=== PATIENT | male | born 1960 | race Caucasian/White ===

== ENCOUNTER 2023-05-06 12:02 | Emergency (ER) | payer OTHER, SELFPAY ==
--- NOTE | ~2023-05-06 | XR_ITS ---
EXAMINATION:XR_[id number]_CR DATE: 05/06/2023 12:31 INDICATION: Left-sided neck and shoulder pain TECHNIQUE: AP, lateral, lateral swimmers and odontoid views of the cervical spine are provided. COMPARISON: None FINDINGS: Alignment is normal. Odontoid is intact. Mild to moderate osteoarthritis at the atlantoaxial articula tion. Vertebral body heights are normal. Moderate disc height loss with severe bilateral uncovertebra l osteoarthritis at C6-C7. Mild disc height loss with mild bilateral uncovertebral osteoarthritis at C2-C3, C4-C5 and with moderate uncovertebral osteoarthritis at C5-C6. Moderate facet osteoarthritis a t C7-T1 and mild facet osteoarthritis throughout the more cephalad cervical spine. Prevertebral soft tissues are normal. IMPRESSION: 1. Moderate lower cervical predominant spondylosis. Reviewed, dictated and finalized at location A.
[2023-05-06 12:07] VITALS: BP 150/86; PULSE 83; RESP 16; TEMP 36.8; O2SAT 99
[2023-05-06] MEDS: CYCLOBENZAPRINE HCL 5 MG TABLET PO (12:29)
[2023-05-06] MEDS: KETOROLAC 30 MG/ML VIAL (*BKC) IM (12:29)
--- NOTE | 2023-05-06 12:34 | ED.NECK ---
HPI - Neck Pain/Injury General Chief Complaint: Neck Pain/Injury Stated Complaint: Neck Pain Time Seen by Provider: 05/06/23 12:03 History of Present Illness HPI Narrative: This is a 62-year-old male, with no significant past medical history, who presents to the emergency department complaining of left shoulder pain. The patient states he has had left shoulder pain for the past 2 years often on, though it is worse in the past day. 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 Yesterday he was at an outside hospital supporting family after a in the family. He states he fell asleep in a chair and on waking felt 5/10 sore and achy left shoulder pain. He states he took ibuprofen overnight and felt some improvement this morning. He denies trauma, fall, weakness/ numbness and has no other complaints at this time. Related Data Allergies Allergy/AdvReac Type Severity Reaction Status Date / Time No Known Allergies Allergy Verified 05/06/23 12:05 Review of Systems Review of Systems: CONSTITUTIONAL: Denies fever, chills, or sweats. CARDIOVASCULAR: Denies chest pain, palpitations, or edema. RESPIRATORY: Denies cough or dyspnea. GASTROINTESTINAL: Denies abdominal pain, nausea, vomiting, or diarrhea. GENITOURINARY: Denies dysuria or hematuria. SKIN: Denies rash or itching. MUSCULOSKELETAL: Left-sided neck and shoulder pain Denies back pain, or myalgia. NEUROLOGIC: Denies headache, numbness, dizziness, or weakness. PSYCHIATRIC: Denies anxiety or depression. [facility] Past Medical History Medical History Fracture dislocation of right ankle Surgical History Surgical History History of repair of right rotator cuff Family History Family History Father Diabetes mellitus Mother Diabetes mellitus Social History Social History Years smoked: 15 Smoking status: Never smoker Tobacco type: cigarettes Second hand tobacco smoke exposure: Yes Alcohol intake: current Substance use: former Substance use type: marijuana Lack of Transportation: No Lack of Food: Never True Current Housing: I Have Housing Concerned About Future Housing: No Difficulty Paying Gas/Electric Bills: No Difficulty Paying for Meds: No Currently Unemployed: YES Education: Trade/Vocational Certificate Difficulty w/ Childcare or Family Care: No Living arrangements: with family Occupation/Education: occupation Gender identity (if verbalized by the patient): Male Sexual Orientation (if Verbalized by the Patient): Straight or Heterosexual Spiritual care concerns: Yes Agree to blood products: Yes Exam Narrative: GENERAL: Well-developed, well-nourished, and in no acute distress. HEAD: Normocephalic, atraumatic. EYES: PERRLA and EOMI. NECK: Supple. No midline spine tenderness to palpation, no step-off or crepitus. Left paraspinal muscle spasm, left trapezius muscle spasm CHEST: Clear to auscultation. No respiratory distress. No wheezes rales or rhonchi HEART: Regular rate and rhythm. No murmur heard. Normal peripheral pulses. ABDOMEN: Soft, nontender, nondistended, normal active bowel sounds. EXTREMITIES: Normal range of motion. No edema. SKIN: Warm, dry, no rash. NEURO: Alert and oriented x3. No focal deficit. Moving all 4 limbs spontaneously PSYCH: Normal mood and affect. Course Course Emergency Course: 13:34 - X-ray of the cervical spine demonstrates arthritic changes, with disc height loss noted at C6-7. I suspect the patient's pain is related to cervical radiculopathy and muscle spasm. Will discharge with muscle relaxers, lidocaine patches and recommendation for primary care follow-up. I discussed the findings and recommendations with the patient. Discussed return and minerva
[2023-05-06 13:40] VITALS: PULSE 65; RESP 16; O2SAT 97
== END 2023-05-06 13:47 | disposition home or self-care (01) ==
PROVIDERS: Emergency Provider Preventive Medicine Aerospace Medicine; PCP Family Medicine
DX: M62.838 Other muscle spasm (principal); M54.12 Radiculopathy, cervical region
CPT/HCPCS: 72040; 96372; 99283; A9270; J1885

== ENCOUNTER 2023-06-19 15:56 | Outpatient (CLI) | payer OTHER, SELFPAY ==
[2023-06-19 17:13] LABS: Cholesterol 278 mg/dL (0-200); HDL Direct 54 mg/dL (40-60); LDL Cholesterol Calculated 153 mg/dL (<130); Prostate Specific Antigen 1.7 ng/mL (< OR = 4.0); Triglycerides 353 mg/dL (0-150)
== END 2023-06-19 15:57 | disposition home or self-care (01) ==
PROVIDERS: PCP Family Medicine; Visit Provider Nurse Practitioner Family
DX: Z12.5 Encounter for screening for malignant neoplasm of prostate (principal); R73.09 Other abnormal glucose; E78.00 Pure hypercholesterolemia, unspecified
CPT/HCPCS: 36415; 80061; 84153

== ENCOUNTER 2023-11-18 16:06 | Outpatient (CLI) | payer MEDICAID, SELFPAY ==
--- NOTE | ~2023-11-18 | XR_ITS ---
EXAMINATION: XR ankle RT min 3V DATE: 11/18/2023 16:31 INDICATION: Right ankle pain TECHNIQUE: Anteroposterior, oblique, mortise, and lateral views of the right ankle were obtained. COMPARISON: None. FINDINGS: Alignment is normal. No fracture. Moderate-sized Achilles and plantar calcaneal spurs. Joint spaces a re relatively preserved. No cortical erosions or periosteal reaction. There is mild soft tissue swell ing about the medial malleolus. IMPRESSION: 1. Mild soft tissue swelling about the medial malleolus. No acute osseous abnormality. 2. Moderate-sized Achilles and plantar calcaneal spurs. Reviewed, dictated and finalized at location A. IMPRESSION: 1. Mild soft tissue swelling about the medial malleolus. No acute osseous abnor mality. 2. Moderate-sized Achilles and plantar calcaneal spurs.
== END 2023-11-18 16:07 | disposition home or self-care (01) ==
LOC: CHSIMG 16:12
PROVIDERS: PCP Family Medicine
DX: M25.571 Pain in right ankle and joints of right foot (principal); M79.89 Other specified soft tissue disorders; M77.31 Calcaneal spur, right foot
CPT/HCPCS: 73610

== ENCOUNTER 2024-02-14 13:54 | Outpatient (CLI) | payer MEDICAID, SELFPAY ==
--- NOTE | ~2024-02-14 | XR_ITS ---
XR chest 2V Ordering provider: MAGEN Morales History: 63 years Male with . Rt. side chest pain x1 month, NKI . Comparison: None. FINDINGS: MEDIASTINUM: The cardiac silhouette is not enlarged. LUNGS: No infiltrates, effusions or pneumothorax. OTHER: No free air under the diaphragm. Degenerative changes of the spine. IMPRESSION: No acute cardiopulmonary pathology. Reviewed, dictated and finalized at location A. FILTER OPERATOR HELPER
[2024-02-14 14:58] LABS: Cholesterol 275 mg/dL (0-200); HDL Direct 56 mg/dL (40-60); LDL Cholesterol Calculated 163 mg/dL (<130); Triglycerides 278 mg/dL (0-150)
[2024-02-14 15:00] LABS: CRP < 0.5 mg/dL (0.0-0.9)
[2024-02-14 15:01] LABS: Erythrocyte Sedimentation Rate 10 mm/hr (0-20)
[2024-02-16 10:08] LABS: HLA B27 POSITIVE (NEGATIVE)
== END 2024-02-14 13:55 | disposition home or self-care (01) ==
LOC: CHSLAB 13:57
PROVIDERS: PCP Nurse Practitioner Family; Visit Provider Nurse Practitioner Family
DX: E78.5 Hyperlipidemia, unspecified (principal); M54.9 Dorsalgia, unspecified
CPT/HCPCS: 36415; 71046; 80061; 85652; 86140; 86812

== ENCOUNTER 2024-03-31 10:15 | Outpatient (CLI) | payer OTHER, SELFPAY ==
--- NOTE | ~2024-03-31 | US_ITS ---
Abdominal Sonogram: Real-time sonographic imaging of the abdomen was performed. Clinical History: Abdominal pain Findings: The liver appears echogenic, with no evidence of mass lesion or bile duct dilatation. Main portal vein demonstrates normal direction of flow. The spleen is normal in size, with suspected subt le 3.1 cm nearly isoechoic round mass. The gallbladder is well distended, and appears normal with no evidence of gallstone or wall thickening. The common bile duct measures 3 mm. The visualized pancre as, aorta, and IVC are unremarkable. The right kidney measures 11.8 cm in length and the left kidney measures 12.6 cm. There is no hydronephrosis or renal calculus. Impression: Diffuse fatty infiltration of the liver. Suspected subtle 3.1 cm splenic mass. Consider MR to further evaluate. Reviewed, dictated and finalized at [facility]. ET CUTTER Impression: Diffuse fatty infiltration of the liver. Suspected subtle 3.1 cm splenic mass. Consider MR to further evaluate.
--- NOTE | ~2024-03-31 | XR_ITS ---
Clinical Indication: Chest pain PA and lateral views of the chest: Comparison: 02/14/2024 Findings: The lungs are clear, without evidence of focal consolidation or pleural effusion. Cardiome diastinal silhouette is within normal limits. Bones and soft tissues are unremarkable. Impression: Normal chest. Reviewed, dictated and finalized at location . OGRAPHIC ARTIST Impression: Normal chest.
[2024-03-31 10:53] LABS: Basophils Absolute Auto 0.13 K/mm3 (0.00-0.10); Basophils Percent Auto 1.4 % (0.0-1.0); Eosinophils Absolute Auto 0.43 K/mm3 (0.02-0.50); Eosinophils Percent Auto 4.5 % (1.0-6.0); Hematocrit 46.2 % (40.0-54.0); Hemoglobin 14.3 g/dL (14.0-18.0); Immature Granulocyte Absolute 0.06 K/mm3 (0.00-0.00); Immature Granulocyte Percent A 0.6 % (0.0-0.0); Lymphocytes Absolute Auto 3.21 K/mm3 (1.10-4.50); Lymphocytes Percent Auto 33.5 % (18.0-42.0); Mean Corpuscular Hemoglobin 27.3 pg (27.0-31.0); Mean Corpuscular Volume 88.3 fL (78.0-102.0); Mean Platelet Volume 10.1 fl (8.7-11.0); Monocytes Absolute Auto 0.91 K/mm3 (0.10-0.90); Monocytes Percent Auto 9.5 % (2.0-11.0); Neutrophils Absolute Auto 4.83 K/mm3 (1.70-7.20); Neutrophils Percent Auto 50.5 % (50.0-70.0); Platelet Count Result 313 K/mm3 (150-420); Red Blood Count 5.23 M/mm3 (4.70-6.10); Red Cell Distribution Width 13.4 % (11.6-14.4); White Blood Count 9.6 K/mm3 (4.8-10.8)
[2024-03-31 11:15] LABS: Alanine Aminotransferase 37 U/L (16-63); Albumin Level 4.2 g/dL (3.4-5.0); Alkaline Phosphatase 112 U/L (46-116); Amylase 52 U/L (25-115); Anion Gap 8 mmol/L (4-12); Aspartate Amino Transferase 18 U/L (15-37); Bilirubin,Total 0.5 mg/dL (0.00-1.00); Blood Urea Nitrogen 14 mg/dL (7-18); Calcium 9.5 mg/dL (8.5-10.1); Carbon Dioxide 30 mmol/L (21-32); Chloride 105 mmol/L (98-108); Creatine Kinase 157 U/L (39-308); Estimated Glomerular Filt Rate > 60; Glucose 119 mg/dL (70-99); Lipase 64 U/L (16-77); Osmolality Calculated 297 mOsm/kg (285-295); Potassium 5.1 mmol/L (3.5-5.1); Sodium 143 mmol/L (136-145); Total Protein 7.8 g/dL (6.4-8.2)
--- OUTSIDE RECORDS SUMMARY | 2024-03-31 11:20 | XMS_ITS | Encounter Summary ---
Author Organization [facility] Address [facility] [place] [address] Care Team Providers Care Seat Cover Cutter Name Role Phone Jonnathan Shine MD Primary Care Provider Encounter Details Date Type Department Care Team (Late st Contact Info) Description 01/04/2022 [employer] Message Enc [facility] [address], [facility] [address] [place] [address] Abhilash Charlton MD [address] [place] [address] Visit Follow Up Social History Tobacco Use Types Packs/Day Years Used Date Smoking Tobacco: Former Cigarettes 1990 Smokeless Tobacco: Never Alcohol Use Standard Drinks/Week Comments Yes 0 (1 standard drink = 0.6 oz pur e alcohol) DAILY AUDIT-C Answer Date Recorded Q1: How often do you have a drink containing alc ohol? Never 06/24/2020 Average Number of Drinks Not on file 021 Frequency of Binge Drinking Not on file 08/2020 Sex and Gender Information Value Date Recorded Sex Assigned at Male 08/10/2019 9:44 AM CDT Legal Sex Male 8:36 AM PRODUCT MERCHANDISER Gender Identity Male 08/10/2019 9:44 AM CDT Sexual Orientation Straight 03/16/2021 9: 15 AM PRODUCT MERCHANDISER COVID-19 Exposure Response Date Recorded In the last 10 days, have yo u been in contact with someone who was confirmed or suspected to have Coronavirus/COVID-19? No / Unsure 01/04/2022 3:53 PM PRODUCT MERCHANDISER documented as of this encounter Functional Status * RETIRED Are you deaf or do you have serious difficulty hearing Answer Date of Assessment Author Status Yes 07/25/2020 5:42 PM CDT Activ e * RETIRED Are you blind or do you have serious difficulty seeing, even when wearing glasses? Answer Date of Assessment Author Status No 07/25/2020 5:42 PM CDT Activ e * Do you have serious difficulty walking or climbing stairs? Answer Date of Assessment Author Status Yes 07/25/2020 5:42 PM GRADYT Marycarmen Lundy RN Active * Do you have difficulty dressing or bathing? Answer Date of Assessment Author Status Yes 07/25/2020 5:42 PM Marycarmen Guevara RN Active * Because of a physical, mental, or emotional condition, do you have difficulty doing errands alone such as visiting a doctor's office or shopping? Answer Date of Assessment Author Status No 07/25/2020 5:42 PM Marycarmen Guevara RN Active documented as of this encounter Mental Status * Because of a physical, mental, or emotional condition, do you have serious difficulty concentrating, remembering, or making decisions? Answer Entry Date Author Status Yes 07/25/2020 5:42 PM Marycarmen Guevara RN Active documented in this encounter Plan of Treatment Not on file documented as of this encounter Visit Diagnoses Not on filedocumented in this encounter Care Teams Seat Cover Cutter Relationship Specialty Start Date End Date Jonnathan Shine MD [address] [place] [address] PCP - General FAMILY PRACTICE 07/03/21 documented as of this encounter
--- OUTSIDE RECORDS SUMMARY | 2024-03-31 11:20 | XMS_ITS | Encounter Summary ---
Author Organization [facility] Address [facility] [place] [address] Care Team Providers Care Ict Security Specialist Name Role Phone Dannielle Suero MD Primary Care Provider [phone] Mark Campa MD Primary Care Provider [phone] Jerome Gonzalez Primary Care Provider [phone] Mark Campa MD Primary Care Provider [phone] Mark Campa MD Primary Care Provider [phone] Jonnathan Shine MD Primary Care Provider [phone] Encounter Details Date Type Department Care Team (Late st Contact Info) Description 07/26/2018 Abstract [facility] [address] [place] [address] , Generic Conversion, Social History Tobacco Use Types Packs/Day Years Used Date Smoking Tobacco: Former Alcohol Use Standard Drinks/Week Comments No 0 (1 standard drink = 0.6 oz pur e alcohol) Sex and Gender Information Value Date Recorded Sex Assigned at Male 08/10/2019 9:44 AM CDT Legal Sex Male 8:36 AM COUNTER POCKET TRIMMER Gender Identity Male 08/10/2019 9:44 AM CDT Sexual Orientation Straight 03/16/2021 9: 15 AM COUNTER POCKET TRIMMER documented as of this encounter Plan of Treatment Not on file documented as of this encounter Visit Diagnoses Not on filedocumented in this encounter Additional Health Concerns Infection Onset Date Last Indicated Resolved Time COVID-19 Rule Out 08/17/2019 08/17/2019 08/18/2019 6:33 PM CDT COVID-19 Rule Out 06/26/2020 06/26/2020 06/29/2020 3:21 PM CDT COVID-19 Rule Out 09/05/2020 09/05/2020 09/06/2020 7:22 PM CDT COVID-19 Rule Out 02/20/2021 02/20/2021 02/20/2021 2:32 PM COUNTER POCKET TRIMMER COVID-19 Confirmed 02/20/2021 02/20/2021 12:32 AM COUNTER POCKET TRIMMER documented as of this encounter Care Teams Ict Security Specialist Relationship Specialty Start Date End Date Dannielle Suero MD PCP - General FAMILY PRACTICE 03/02/16 07/19/19 Mark Campa MD PCP - General FAMILY PRACTICE 07/20/19 11/06/19 [place] [address] [place] [address] PCP - General PHYSICIAN HIGHBALLER 11/07/19 05/05/20 Mark Campa MD PCP - General FAMILY PRACTICE 05/06/20 09/06/20 Mark Campa MD PCP - General FAMILY PRACTICE 02/20/21 07/02/21 Jonnathan Shine MD [address] [place] [id number] PCP - General FAMILY PRACTICE 07/03/21 documented as of this encounter
--- OUTSIDE RECORDS SUMMARY | 2024-03-31 11:20 | XMS_ITS | Encounter Summary ---
Author Organization [facility] Address [address] [place] [address] Care Team Providers Care Cigarette Packer Name Role Phone Dannielle Suero MD Primary Care Provider [phone] Mark Campa MD Primary Care Provider [phone] Jerome Gonzalez Primary Care Provider [phone] Mark Campa MD Primary Care Provider [phone] Mark Campa MD Primary Care Provider [phone] Jonnathan Shine MD Primary Care Provider [phone] Encounter Details Date Type Department Care Team (Late st Contact Info) Description 03/09/2016 Abstract [facility] [address] [place] [address] Mitchel Valdez MD Social History Tobacco Use Types Packs/Day Years Used Date Smoking Tobacco: Never Alcohol Use Standard Drinks/Week Comments No 0 (1 standard drink = 0.6 oz pur e alcohol) Sex and Gender Information Value Date Recorded Sex Assigned at Male 08/10/2019 9:44 AM CDT Legal Sex Male 8:36 AM PRICING COORDINATOR Gender Identity Male 08/10/2019 9:44 AM CDT Sexual Orientation Straight 03/16/2021 9: 15 AM PRICING COORDINATOR documented as of this encounter Plan of [...] Rule Out 02/20/2021 02/20/2021 02/20/2021 2:32 PM PRICING COORDINATOR COVID-19 Confirmed 02/20/2021 02/20/2021 12:32 AM PRICING COORDINATOR documented as of this encounter Care Teams Cigarette Packer Relationship Specialty Start Date End Date Dannielle Suero MD PCP - General FAMILY PRACTICE 03/02/16 07/19/19 Mark Campa MD PCP - General FAMILY PRACTICE 07/20/19 11/06/19 [place] [address] [place] [address] PCP - General PHYSICIAN STABLE HAND 11/07/19 05/05/20 Mark Campa MD PCP - General FAMILY PRACTICE 05/06/20 09/06/20 Mark Campa MD PCP - General FAMILY PRACTICE 02/20/21 07/02/21 Jonnathan Shine MD [address] [facility] [place] [address] PCP - General FAMILY PRACTICE 07/03/21 documented as of this encounter
--- OUTSIDE RECORDS SUMMARY | 2024-03-31 11:20 | XMS_ITS | Clinical Summary ---
Author Organization [facility] Address [address] [place] [address] Care Team Providers Care Summer Camp Counselor Name Role Phone Jonnathan Shine MD Primary Care Provider Allergies No known active allergies Medications ibuprofen 200 MG tablet Take 400 mg by mouth every 6 (six) hours as needed for Pain. Active acetaminophen 500 MG tablet Take 500 mg by mouth every 6 (six) hours as needed for Pain. Active gabapentin (NEURONTIN) 800 MG tabletIndications:P eripheral polyneuropathy Take 1 tablet (800 mg total) by mouth 3 (three) times daily. 90 tablet 2 2 Active DULoxetine (CYMBALTA) 30 MG capsuleIndications: Lumbar radiculopathy Take 1 capsule (30 mg total) by mouth daily. 90 capsule 1 3 Active HYDROcodone-acetami nophen (NORCO) 5-325 MG tabletIndications:C hronic Pain Take 1 tablet by mouth 2 (two) times daily as needed for Pain. Indications: Chronic Pain 30 tablet 3 Active Active Problems Problem Noted Date Diagnosed Date Low back pain 04/25/2022 Light headedness 03/16/2022 Lumbar radiculopathy 03/16/2022 Peripheral polyneuropathy 01/30/2022 Trigger finger, right middle finger 01/04/2022 Bone spur of right ankle 08/18/2021 Complex regional pain syndro me type 1 of left lower extremity 06/20/2021 Heart palpitations 03/25/2016 Resolved Problems Problem Noted Date Diagnosed Date Resolved Date Follow-up examination after orthopedic surgery 03/30/2021 06/26/2021 S/P umbilical hernia repair, follow-up exam 08/27/2019 10/30/2019 Umbilical hernia without obs truction or gangrene 08/10/2019 08/27/2019 Family History Medical History Relation Comments No Known Problems Brother 1 No Known Problems Brother 2 Diabetes Father Diabetes Mother No Known Problems Other Diabetes Sister Relation Status Comments Brother 1 Alive Brother 2 Alive Father Mother Alive Other Sister Alive Social History Tobacco Use Types Packs/Day Years Used Date Smoking Tobacco: Former Cigarettes 1 1990 Smokeless Tobacco: Never Tobacco Cessation:Counseling Given: No Alcohol Use Standard Drinks/Week Comments Yes 0 (1 standard drink = 0.6 oz pur e alcohol) DAILY AUDIT-C Answer Date Recorded Q1: How often do you have a drink containing alc ohol? Never 06/24/2020 Average Number of Drinks Not on file 021 Frequency of Binge Drinking Not on file 08/2020 PHQ-2 Answer Date Recorded Patient Health Questionnaire-2 Score 0 03/14/2022 Sex and Gender Information Value Date Recorded Sex Assigned at Male 08/10/2019 9:44 AM CDT Legal Sex Male 8:36 AM WIND OPERATIONS SUPERVISOR Gender Identity Male 08/10/2019 9:44 AM CDT Sexual Orientation Straight 03/16/2021 9: 15 AM WIND OPERATIONS SUPERVISOR Last Filed Vital Signs Vital Sign Reading Time Taken Comments Blood Pressure 140/82 03/14/2022 1:38 PM WIND OPERATIONS SUPERVISOR Pulse 77 03/14/2022 1:38 PM WIND OPERATIONS SUPERVISOR Temperature 36.1 C (96.9 F) 03/10/2021 4:04 PM WIND OPERATIONS SUPERVISOR Respiratory Rate 20 03/10/2021 4:04 PM WIND OPERATIONS SUPERVISOR Oxygen Saturation 97% 01/29/2022 3:18 PM WIND OPERATIONS SUPERVISOR Inhaled Oxygen Concentration - - Weight 92.5 kg (204 lb) 03/14/2022 1:38 PM WIND OPERATIONS SUPERVISOR Height 175.3 cm (5' 9 ) 03/14/2022 1:38 PM WIND OPERATIONS SUPERVISOR Body Mass Index 30.13 03/14/2022 1:38 PM WIND OPERATIONS SUPERVISOR Plan of Treatment Health Maintenance Due Date Last Done Comments Colorectal Cancer Screening Colonoscopy (10 Years) 1962 Annual Physical 1965 Hepatitis C 1980 DTaP, Tdap and Td Vaccines ( 1 - Tdap) 1981 Zoster Vaccines (1 of 2) 2012 COVID-19 Vaccine ( - 2023-2 5 season) 2023 Influenza Adult (#1) 2023 RSV Immunization or 60+ Years (1 - 1-dose 75+ series) 2037 Meningococcal B Vaccine Aged Out No l onger eligible based on patient's age to complete this topic Meningococcal Vaccine Aged Out No mauri tasha eligible based on patient's age to complete this topic Pneumococcal Vaccine: Pediat rics (0 to 5 Years) and At-Risk Patients (6 to 64 Years) Aged Out No longer eligible b ased on patient's age to complete this topic RSV Immunizations Under 20 Months Aged Out No longer eligible based on patient's age to complete this topic Medical Devices Implanted Type Area Civil Lawyer Device Identifier Shelf Expiration Date Model / Serial / Lot Plate [id number] Titanium 4 Hole Lock Low Profile Variax Bone 16x1.3mm Fibula Lateral Nonsterile - [id number] Implanted:Qty: 1 on 03/10/2021 by Abhilash Charlton MD at [facility] Plate Left: Ankle [employer] DIV [employer] ELENA [id number] / / Screw Screw Description:Right shoulder Screw Bone 3.5mm 14mm Variax Titanium T10 Full Thread Foot Ankle Self Tap Nonsterile Yellow Lock Plate System - [id number] Implanted:Qty: 1 on 03/10/2021 by Abhilash Charlton MD at [facility] Screw Left: Ankle [employer] DIV [employer]LENA [id number] / / Screw Bone 3.5mm 16mm Variax Titanium T10 Full Thread Foot Ankle Self Tap Nonsterile Yellow Lock Plate System - [id number] Implanted:Qty: 1 on 03/10/2021 by Abhilash Charlton MD at [facility] Screw Left: Ankle [employer] DIV [employer] ELE[employer] [id number] / / Screw Bone 3.5mm 20mm Titanium T10 Full Thread Self Tap Stardrive Nonsterile Yellow Variax Foot Plate System - [id number] Implanted:Qty: 1 on 03/10/2021 by Abhilash Charlton MD at [facility] Screw Left: Ankle [employer] DIV [employer]LE[employer] [id number] / / Screw Locking [place] T10 3.5 X 14mm - [id number] Implanted:Qty: 1 on 03/10/2021 by Abhilash Charlton MD at [facility] Screw Left: Ankle [employer] DIV [employer] ELE[employer] [id number] / / Screw Locking Nanci T10 3.5 X 16mm - [id number] Implanted:Qty: 1 on 03/10/2021 by Abhilash Charlton MD at [facility] Screw Left: Ankle [employer] DIV [employer]LE[employer] [id number] / / Screw Locking Nanci T10 3.5 X 18mm - [id number] Implanted:Qty: 1 on 03/10/2021 by Abhilash Charlton MD at [facility] Screw Left: Ankle [employer] DIV [employer]LE[employer] [id number] / / Screw Locking [place] T10 3.5 X 20mm - [id number] Implanted:Qty: 1 on 03/10/2021 by Abhilash Charlton MD at [facility] Screw Left: Ankle [employer] DIV [employer]LE[employer] [id number] / / 3.5 X 16mm Locking Screw Implanted:Qty: 1 on 03/10/2021 by Abhilash Charlton MD at [facility] Left: Ankle [employer]LE[employer] [id number] / / 3.5 X 12 Mm Locking Screw Implanted:Qty: 1 on 03/10/2021 by Abhilash Charlton MD at [facility] Left: Ankle [employer] DIV [employer]LENA [id number] / / Suture [place], Corkscrew 3.5 X 12.1 Mm Implanted:Qty: 1 on 03/10/2021 by Abhilash Charlton MD at [facility] Left: Ankle [employer] 10/18/2024 [id number] / / [id number] Explanted Type Area Civil Lawyer Device Identifier Shelf Expiration Date Model / Serial / Lot 2.6 X 135mm Drill Bit Explanted:Qty: 1 on 03/10/2021 by Abhilash Charlton MD at [facility] Left: Ankle [employer] [id number] / / 2 X 135 Mm Drill Bit Explanted:Qty: 1 on 03/10/2021 by Abhilash Charlton MD at [facility] Left: Ankle [id number] / / T10 Blade Explanted:Qty: 1 on 03/10/2021 by Abhilash Charlton MD at [facility] Left: Ankle [employer] [id number] / / Insurance MEDICAID Care Teams Summer Camp Counselor Relationship Specialty Start Date End Date Jonnathan Shine MD [address] [facility] [address] [place] [address] PCP - General FAMILY PRACTICE 07/03/21
[2024-04-03 07:14] LABS: EBV Virus Capsid Ag IgM Ab <36.00 U/mL
== END 2024-03-31 10:16 | disposition home or self-care (01) ==
PROVIDERS: PCP Nurse Practitioner Family; Visit Provider Nurse Practitioner Family
DX: R10.9 Unspecified abdominal pain (principal); R07.81 Pleurodynia; H43.399 Other vitreous opacities, unspecified eye; R16.1 Splenomegaly, not elsewhere classified; K76.0 Fatty (change of) liver, not elsewhere classified
CPT/HCPCS: 36415; 71046; 76700; 80053; 82150; 82550; 83690; 85025; 86664; 86665

== ENCOUNTER 2024-04-09 09:31 | Outpatient (CLI) | payer OTHER, SELFPAY ==
--- NOTE | ~2024-04-09 | MR_ITS ---
EXAMINATION: MR abdomen wo/w con DATE: 04/09/2024 11:44 INDICATION: Splenic mass. TECHNIQUE: Magnetic resonance imaging (MRI) of the abdomen was performed without and with 20 mL Multi Estevan intravenous contrast. COMPARISON: Abdomen ultrasound 03/31/2024 FINDINGS: There is diffuse hepatic steatosis. The gallbladder, spleen, pancreas, and adrenal glands are normal. There is a small sliding hiatal hernia. Right kidney is normal. There are cysts in left kidney measu ring up to 11 mm . There are no dilated loops of bowel. There are no pathologically enlarged lymph no josette. There is no free intraperitoneal fluid. IMPRESSION: 1. Normal spleen. No abnormal mass. 2. Diffuse hepatic steatosis. Reviewed, dictated and finalized at location A. ALLATION MANAGER
== END 2024-04-09 09:32 | disposition home or self-care (01) ==
PROVIDERS: PCP Nurse Practitioner Family; Visit Provider Nurse Practitioner Family
DX: R16.1 Splenomegaly, not elsewhere classified (principal); K76.0 Fatty (change of) liver, not elsewhere classified
CPT/HCPCS: 74183; A9577

== ENCOUNTER 2024-06-02 15:17 | Outpatient (CLI) | payer OTHER, SELFPAY ==
--- NOTE | ~2024-06-02 | XR_ITS ---
Right Hand Technique: PA, oblique, and lateral views were obtained. Clinical History: Pain Findings: No acute fracture or dislocation is seen. Osseous alignment is anatomic. Joint spaces are p reserved. Soft tissues are unremarkable. Impression: Unremarkable right hand. Reviewed, dictated and finalized at location M. Impression: Unremarkable right hand.
--- OUTSIDE RECORDS SUMMARY | 2024-06-02 16:23 | XMS_ITS | Encounter Summary ---
Author Organization [facility] System Address [facility] [place] [address] Care Team Providers Care Development Executive Name Role Phone Jonnathan Shine MD Primary Care Provider [phone] Encounter Details Date Type Department Care Team (Late st Contact Info) Description 01/04/2022 Paymentust Message Enc [facility] [place] [address] Abhilash Charlton MD [address] [place] [address] Visit Follow Up Social History Tobacco Use [...] AM CDT Legal Sex Male 8:36 AM DATAPOWER CONSULTANT Gender Identity Male 08/10/2019 9:44 AM CDT Sexual Orientation Straight 03/16/2021 9: 15 AM DATAPOWER CONSULTANT COVID-19 Exposure Response Date Recorded In the last 10 days, have yo u been in contact with someone who was confirmed or suspected to have Coronavirus/COVID-19? No / Unsure 01/04/2022 3:53 PM DATAPOWER CONSULTANT documented as of this encounter Functional Status [...] 5:42 PM Marycarmen Guevara RN Active * Do you have difficulty [...] on filedocumented in this encounter Care Teams Development Executive Relationship Specialty Start Date End Date Jonnathan Shine MD [address] [place] [address] PCP - General FAMILY PRACTICE 07/03/21 documented as of this encounter
--- OUTSIDE RECORDS SUMMARY | 2024-06-02 16:23 | XMS_ITS | Clinical Summary ---
Author Organization [facility] Address [address] [place] [address] Care Team Providers Care Real Estate Transaction Manager Name Role Phone Jonnathan Shine MD Primary Care Provider [phone] Allergies No known active allergies Medications ibuprofen [...] AM CDT Legal Sex Male 8:36 AM SALES ROUTE DRIVER Gender Identity Male 08/10/2019 9:44 AM CDT Sexual Orientation Straight 03/16/2021 9: 15 AM SALES ROUTE DRIVER Last Filed Vital Signs Vital Sign Reading Time Taken Comments Blood Pressure 140/82 03/14/2022 1:38 PM SALES ROUTE DRIVER Pulse 77 03/14/2022 1:38 PM SALES ROUTE DRIVER Temperature 36.1 C (96.9 F) 03/10/2021 4:04 PM SALES ROUTE DRIVER Respiratory Rate 20 03/10/2021 4:04 PM SALES ROUTE DRIVER Oxygen Saturation 97% 01/29/2022 3:18 PM SALES ROUTE DRIVER Inhaled Oxygen Concentration - - Weight 92.5 kg (204 lb) 03/14/2022 1:38 PM SALES ROUTE DRIVER Height 175.3 cm (5' 9 ) 03/14/2022 1:38 PM SALES ROUTE DRIVER Body Mass Index 30.13 03/14/2022 1:38 PM SALES ROUTE DRIVER Plan of Treatment Health Maintenance Due Date Last Done Comments Colorectal Cancer Screening Colonoscopy (10 Years) 1960 Annual Physical 1965 Hepatitis C 1980 DTaP, Tdap and Td Vaccines ( 1 - Tdap) 1981 Zoster Vaccines (1 of 2) 2012 COVID-19 Vaccine (1 - 2024-2 5 season) 2023 RSV Immunization or 60+ Years (1 - 1-dose 75+ series) 2037 Meningococcal B Vaccine Aged Out No l onger eligible based on patient's age to complete this topic Meningococcal Vaccine Aged Out No mauri tasha eligible based on patient's age to complete this topic Pneumococcal Vaccine: Pediat rics (0 to 5 Years) and At-Risk Patients (6 to 49 Years) Aged Out No longer eligible b ased on patient's age to complete this topic RSV Immunizations Under 20 Months Aged Out No longer eligible based on patient's age to complete this topic Medical Devices Implanted Type Area Maintenance Craftsman Device Identifier Shelf Expiration Date Model / Serial / Lot Plate [id number] Titanium 4 Hole Lock Low Profile Variax Bone 16x1.3mm Fibula Lateral Nonsterile - [id number] Implanted:Qty: 1 on 03/10/2021 by Abhilash Charlton MD at [facility] Plate Left: Ankle [employer] DIV [employer] ELENA [id number] / / Screw Screw Description:Right shoulder Screw Bone 3.5mm 14mm Variax Titanium T10 Full Thread Foot Ankle Self Tap Nonsterile Yellow Lock Plate System - [id number] Implanted:Qty: 1 on 03/10/2021 by Abhilash Charlton MD at [facility] Screw Left: Ankle [employer] [id number] / / Screw Bone 3.5mm 16mm Variax Titanium T10 Full Thread Foot Ankle Self Tap Nonsterile Yellow Lock Plate System - [id number] Implanted:Qty: 1 on 03/10/2021 by Abhilash Charlton MD at [facility] Screw Left: Ankle [employer] [id number] / / Screw Bone 3.5mm 20mm Titanium T10 Full Thread Self Tap Stardrive Nonsterile Yellow Variax Foot Plate System - [id number] Implanted:Qty: 1 on 03/10/2021 by Abhilash Charlton MD at [facility] Screw Left: Ankle [employer] DIV [employer]LE[employer] [id number] / / Screw Locking [place] T10 3.5 X 14mm - [id number] Implanted:Qty: 1 on 03/10/2021 by Abhilash Charlton MD at [facility] Screw Left: Ankle [employer] DIV [employer]LENA [id number] / / Screw Locking Nanci T10 3.5 X 16mm - [id number] Implanted:Qty: 1 on 03/10/2021 by Abhilash Charlton MD at [facility] Screw Left: Ankle [employer]LE[employer] [id number] / / Screw Locking [place] T10 3.5 X 18mm - [id number] Implanted:Qty: 1 on 03/10/2021 by Abhilash Charlton MD at [facility] Screw Left: Ankle [employer] [id number] / / Screw Locking [place] T10 3.5 X 20mm - [id number] Implanted:Qty: 1 on 03/10/2021 by Abhilash Charlton MD at [facility] Screw Left: Ankle [employer] [id number] / / 3.5 X 16mm Locking Screw Implanted:Qty: 1 on 03/10/2021 by Abhilash Charlton MD at [facility] Left: Ankle [employer] DIV [employer] ELENA [id number] / / 3.5 X 12 Mm Locking Screw Implanted:Qty: 1 on 03/10/2021 by Abhilash Charlton MD at [facility] Left: Ankle [employer] DIV [employer] ELENA [id number] / / Suture [place], Corkscrew 3.5 X 12.1 Mm Implanted:Qty: 1 on 03/10/2021 by Abhilash Charlton MD at [facility] Left: Ankle [employer] 10/18/2024 [id number] / / [id number] Explanted Type Area Maintenance Craftsman Device Identifier Shelf Expiration Date Model / Serial / Lot 2.6 X 135mm Drill Bit Explanted:Qty: 1 on 03/10/2021 by Abhilash Charlton MD at [facility] Left: Ankle [employer] DIV [employer]LENA [id number] / / 2 X 135 Mm Drill Bit Explanted:Qty: 1 on 03/10/2021 by Abhilash Charlton MD at [facility] Left: Ankle [id number] / / T10 Blade Explanted:Qty: 1 on 03/10/2021 by Abhilash Charlton MD at [facility] Left: Ankle [employer]LENA [id number] / / Insurance MEDICAID Care Teams Real Estate Transaction Manager Relationship Specialty Start Date End Date Jonnathan Shine MD [address] [place] [id number] PCP - General FAMILY PRACTICE 07/03/21
--- OUTSIDE RECORDS SUMMARY | 2024-06-02 16:23 | XMS_ITS | Encounter Summary ---
Author Organization [facility] Address [address] [place] [address] Care Team Providers Care Director Of Philanthropy Name Role Phone Dannielle Suero MD Primary Care Provider [phone] Mark Campa MD Primary Care Provider + [phone] Jerome Gonzalez Primary Care Provider [phone] Mark Campa MD Primary Care Provider [phone] Mark Campa MD Primary Care Provider + [phone] Jonnathan Shine MD Primary Care Provider [phone]- [phone] Encounter Details Date Type Department Care Team (Late st Contact Info) Description 07/26/2018 Abstract [facility] CONVERSION [address] [place] [address] , Generic Conversion, Social History Tobacco Use Types Packs/Day Years Used Date Smoking Tobacco: Former Alcohol Use Standard Drinks/Week Comments No 0 (1 standard drink = 0.6 oz pur e alcohol) Sex and Gender Information Value Date Recorded Sex Assigned at Male 08/10/2019 9:44 AM CDT Legal Sex Male 8:36 AM LANDSCAPE SUPERVISOR Gender Identity Male 08/10/2019 9:44 AM CDT Sexual Orientation Straight 03/16/2021 9: 15 AM LANDSCAPE SUPERVISOR documented as of this encounter Plan of Treatment Not on file documented as of this encounter Visit Diagnoses Not on filedocumented in this encounter Additional Health Concerns Infection Onset Date Last Indicated Resolved Time COVID-19 Rule Out 08/17/2019 08/17/2019 08/18/2019 6:33 PM CDT COVID-19 Rule Out 06/26/2020 06/26/202006/29/2020 3:21 PM CDT COVID-19 Rule Out 09/05/2020 09/05/2020 09/06/2020 7:22 PM CDT COVID-19 Rule Out 02/20/2021 02/20/2021 02/20/2021 2:32 PM LANDSCAPE SUPERVISOR COVID-19 Confirmed 02/20/2021 02/20/2021 12:32 AM LANDSCAPE SUPERVISOR documented as of this encounter Care Teams Director Of Philanthropy Relationship Specialty Start Date End Date Dannielle Suero MD PCP - General FAMILY PRACTICE 03/02/16 07/19/19 Mark Campa MD PCP - General FAMILY PRACTICE 07/20/19 11/06/19 [place] [address] [place] [address] PCP - General PHYSICIAN FILAMENT SHAPER 11/07/19 05/05/20 Mark Campa MD PCP - General FAMILY PRACTICE 05/06/20 09/06/20 Mark Campa MD PCP - General FAMILY PRACTICE 02/20/21 07/02/21 Jonnathan Shine MD [address] [place] [phone] PCP - General FAMILY PRACTICE 07/03/21 documented as of this encounter
--- OUTSIDE RECORDS SUMMARY | 2024-06-02 16:23 | XMS_ITS | Encounter Summary ---
Author Organization [facility] Address [address] [place] [address] Care Team Providers Care Assembler Metal Furniture Name Role Phone Dannielle Suero MD Primary Care Provider [phone] Mark Campa MD Primary Care Provider + [phone] Jerome Gonzalez Primary Care Provider [phone] Mark Campa MD Primary Care Provider [phone] Mark Campa MD Primary Care Provider [phone] Jonnathan Shine MD Primary Care Provider [phone]- [phone] Encounter Details Date Type Department Care Team (Late st Contact Info) Description 03/09/2016 Abstract [facility] [address] [place] [address] Mitchel Valdez MD Social History Tobacco Use Types Packs/Day Years Used Date Smoking Tobacco: Never Alcohol Use Standard Drinks/Week Comments No 0 (1 standard drink = 0.6 oz pur e alcohol) Sex and Gender Information Value Date Recorded Sex Assigned at Male 08/10/2019 9:44 AM CDT Legal Sex Male 8:36 AM LONGWALL SHEARER OPERATOR Gender Identity Male 08/10/2019 9:44 AM CDT Sexual Orientation Straight 03/16/2021 9: 15 AM LONGWALL SHEARER OPERATOR documented as of this encounter Plan of [...] Rule Out 02/20/2021 02/20/2021 02/20/2021 2:32 PM LONGWALL SHEARER OPERATOR COVID-19 Confirmed 02/20/2021 02/20/2021 12:32 AM LONGWALL SHEARER OPERATOR documented as of this encounter Care Teams Assembler Metal Furniture Relationship Specialty Start Date End Date Dannielle Suero MD PCP - General FAMILY PRACTICE 03/02/16 07/19/19 Mark Campa MD PCP - General FAMILY PRACTICE 07/20/19 11/06/19 [place] [address] [address] PCP - General PHYSICIAN CLERK TRAVEL RESERVATIONS 11/07/19 05/05/20 Mark Campa MD PCP - General FAMILY PRACTICE 05/06/20 09/06/20 Mark Campa MD PCP - General FAMILY PRACTICE 02/20/21 07/02/21 Jonnathan Shine MD [address] [place] [phone] PCP - General FAMILY PRACTICE 07/03/21 documented as of this encounter
== END 2024-06-02 15:18 | disposition home or self-care (01) ==
PROVIDERS: PCP Nurse Practitioner Family; Visit Provider Nurse Practitioner Adult Health
DX: M79.641 Pain in right hand (principal); M65.30 Trigger finger, unspecified finger
CPT/HCPCS: 73120

== ENCOUNTER 2024-09-15 02:05 | Day surgery (SDC) | payer OTHER, MEDICAID, SELFPAY ==
[2024-09-03 11:56] VITALS: BMI 31.9
[2024-09-15 12:51] VITALS: BP 152/88; PULSE 83; RESP 18; TEMP 37.1; O2SAT 98
--- NOTE | 2024-09-15 12:51 | WPDANESEPPF ---
Anes - Initial Pre Proc Eval Procedure: Operation Date: 09/15/24 14:30 Proposed Procedures p Colonoscopy - Vincent Hernandez MD Date/Time: 09/15/24 12:51 Surgeon: Vincent Hernandez MD Pre Op Diagnosis: Other fecal abnormalities Patient Data Age: 64 Gender: M Height: 1.73 m Weight: 94.4 kg Allergies Allergy/AdvReac Type Severity Reaction Status Date / Time gadobenic acid (From Allergy Mild Vomiting Verified 09/15/24 12:49 Multihance) Gadolinium-Containing Allergy Mild Vomiting Verified 09/15/24 12:49 Contrast Medi Home Medications ?Medication ?Instructions ?Recorded ?Confirmed ?Type rosuvastatin 20 mg tablet (Crestor) 20 mg PO DAILY #90 tabs 03/02/24 09/15/24 Rx gabapentin 800 mg tablet 800 mg PO BID #60 tabs 03/30/24 09/15/24 Rx duloxetine 60 mg capsule,delayed 60 mg PO DAILY #90 caps 07/05/24 09/15/24 Rx release Patient hx anesthesia problems: none Family hx anesthesia problems: none Results Review: All pre-operative results and documents have been reviewed as part of the pre-operative evaluation. [facility] Past Medical History Medical History Screen for colon cancer Chest pain Pain in right hand Trigger finger of right hand Elevated cholesterol Fracture dislocation of right ankle Surgical History Surgical History History of repair of right rotator cuff Family History Family History Father Diabetes mellitus Mother Diabetes mellitus Social History Social History Years smoked: 15 Smoking status: Never smoker Tobacco type: cigarettes Second hand tobacco smoke exposure: Yes Alcohol intake: current Substance use: former Substance use type: marijuana Do You Feel Safe in your Home?: Yes Lack of Transportation: No Lack of Food: Never True Current Housing: I Have Housing Concerned About Future Housing: No Difficulty Paying Gas/Electric Bills: No Difficulty Paying for Meds: No Currently Unemployed: YES Education: Trade/Vocational Certificate Difficulty w/ Childcare or Family Care: No Living arrangements: with family Occupation/Education: occupation Gender identity (if verbalized by the patient): Male Sexual Orientation (if Verbalized by the Patient): Straight or Heterosexual Spiritual care concerns: Yes Agree to blood products: Yes Anes - Eval Final PreProcedure Day of Procedure 09/15/24 12:51 Patient weight: obese Heart: regular rate and rhythm Lungs: clear to auscultation Airway: Mallampati scale class II Neurological: alert and oriented Last oral intake: >/= 8 hours ASA classification: III Emergent: no Anesthetic plan: proceed Anesthesia type and monitoring: general GIVS and standard monitoring Results Review: All pre-operative results and documents have been reviewed as part of the pre-operative evaluation. Informed Consent: The patient's anesthetic plan and its attendant risks and benefits were discussed with the patient/family/POA. Questions were solicited and answers provided to the satisfaction of the patient/family/POA.
[2024-09-15] MEDS: LACTATED RINGERS 1,000 ML 150 ML IV CONT (13:00)
--- NOTE | 2024-09-15 13:34 | PM.HPGS ---
History of Present Illness History of Present Illness Consent: Risks, benefits, and alternatives have been discussed and questions answered. Patient agrees to proceed with procedure. Chief complaint: Other fecal abnormalities Narrative: Gm De Paz is a 64 year old male here for first colonoscopy, + cologuard Review of Systems Review of Systems: All systems reviewed & are unremarkable except as noted in HPI and below PMFSH Past Medical History Medical History Screen for colon cancer Chest pain Pain in right hand Trigger finger of right hand Elevated cholesterol Fracture dislocation of right ankle Surgical History Surgical History History of repair of right rotator cuff Family History Family History Father Diabetes mellitus Mother Diabetes mellitus Social History Social History Years smoked: 15 Smoking status: Never smoker Tobacco type: cigarettes Second hand tobacco smoke exposure: Yes Alcohol intake: current Substance use: former Substance use type: marijuana Do You Feel Safe in your Home?: Yes Lack of Transportation: No Lack of Food: Never True Current Housing: I Have Housing Concerned About Future Housing: No Difficulty Paying Gas/Electric Bills: No Difficulty Paying for Meds: No Currently Unemployed: YES Education: Trade/Vocational Certificate Difficulty w/ Childcare or Family Care: No Living arrangements: with family Occupation/Education: occupation Gender identity (if verbalized by the patient): Male Sexual Orientation (if Verbalized by the Patient): Straight or Heterosexual Spiritual care concerns: Yes Agree to blood products: Yes Meds Home Medications and Allergies Home Medications ?Medication ?Instructions ?Recorded ?Confirmed ?Type rosuvastatin 20 mg tablet (Crestor) 20 mg PO DAILY #90 tabs 03/02/24 09/15/24 Rx gabapentin 800 mg tablet 800 mg PO BID #60 tabs 03/30/24 09/15/24 Rx duloxetine 60 mg capsule,delayed 60 mg PO DAILY #90 caps 07/05/24 09/15/24 Rx release Allergies Allergy/AdvReac Type Severity Reaction Status Date / Time gadobenic acid (From Allergy Mild Vomiting Verified 09/15/24 12:49 Multihance) Gadolinium-Containing Allergy Mild Vomiting Verified 09/15/24 12:49 Contrast Medi Vital Signs Vital Signs - 24 hr 09/15/24 12:51 Temperature 98.7 F Pulse Rate 83 Respiratory Rate 18 Blood Pressure 152/88 H Pulse Oximetry 98 Oxygen Delivery Room Air Exam Const: General: comfortable and no acute distress HENMT: Face/Nose/Sinus: Normal nares present Eyes: General: appearance normal, both eyes and all related structures Neck: Neck: no JVD Resp: Auscultation: clear to auscultation bilaterally Cardio: Rate: regular rate Rhythm: regular rhythm GI: Inspection: non-distended GI Palp: Yes Soft to palpation Skin: General skin exam: normal color Neuro: General: gait normal Speech: normal speech Extrem: General: normal to inspection Psych: Mental Status: mental status grossly normal Assessment and Plan Assessment and plan (1) Positive colorectal cancer screening using Cologuard test: Code(s): R19.5 - Other fecal abnormalities Status: Acute Assessment and Plan: colonoscopy
--- NOTE | 2024-09-15 13:48 | S_PTH ---
PATIENT: Gm De Paz LOC: [facility] Ly#:[id number] AGE/SX: 64/M ROOM: RE09/15/[address]: Vincent Hernandez MD : 1960 BED: DIS: 09/15/2024 SPEC #: [id number] RECD: 09/15/24 14:00 STATUS: BLAZE REKimmie #: [id number] TRIPP: 09/15/24 13:[address]: Vincent Hernandez DEPT: [facility] Surgical RECD BY: Codey Addison ENTERED: 09/15/24 14:01 SP TYPE: Surgical OTHR DR: Liu Christianson MD Tissues: A - Colon Polypectomy B - Colon Polypectomy Procedures: Hematoxylin and Eosin Stain Gross and Microscopic Level 4
[2024-09-15 13:50] VITALS: BP 104/72; PULSE 76; RESP 15; O2SAT 95
[2024-09-15 14:00] VITALS: BP 109/67; PULSE 83; RESP 17; O2SAT 99
[2024-09-15 14:10] VITALS: BP 102/75; PULSE 72; RESP 17; O2SAT 98
== END 2024-09-15 14:16 | disposition home or self-care (01) ==
PROVIDERS: PCP Family Medicine; Referring Provider Nurse Practitioner Family; Visit Provider Internal Medicine Gastroenterology
PROC: 0DJD8ZZ Inspection of Lower Intestinal Tract, Via Natural or Artificial Opening Endoscopic (ICD-10-PCS; CPT 45378; principal; 2024-09-15 14:30)
DX: R19.5 Other fecal abnormalities (principal); D12.3 Benign neoplasm of transverse colon; D12.2 Benign neoplasm of ascending colon; K64.8 Other hemorrhoids; E78.00 Pure hypercholesterolemia, unspecified; F12.90 Cannabis use, unspecified, uncomplicated; E66.9 Obesity, unspecified; Z68.31 Body mass index [BMI] 31.0-31.9, adult; Z98.890 Other specified postprocedural states
CPT/HCPCS: 45385; 88305; J2003; J2704; J7120

== ENCOUNTER 2024-09-26 10:50 | Emergency (ER) | payer OTHER, MEDICAID, SELFPAY ==
--- NOTE | ~2024-09-26 | XR_ITS ---
EXAMINATION: XR knee LT 3V DATE: 09/26/2024 11:52 INDICATION: Anterior left knee pain post fall TECHNIQUE: Anteroposterior, oblique and crosstable lateral views of the left knee were obtained COMPARISON: None. FINDINGS: Alignment is normal. No fracture. Joint spaces appear normal on nonweightbearing imaging. No joint e ffusion/layering lipohemarthrosis. Soft tissues are unremarkable. IMPRESSION: 1. Negative left knee radiographs. Reviewed, dictated and finalized at location A.
[2024-09-26 10:50] VITALS: BP 130/87; PULSE 75; RESP 20; TEMP 36.3; O2SAT 96
--- OUTSIDE RECORDS SUMMARY | 2024-09-26 10:56 | XMS_ITS | Encounter Summary ---
Author Organization [facility] Address [address] [place] [address] Care Team Providers Care Cement Sack Breaker Name Role Phone Dannielle Suero MD Primary Care Provider [phone] Mark Campa MD Primary Care Provider [phone] Jerome Gonzalez Primary Care Provider [phone] Mark Campa MD Primary Care Provider [phone] Mark Campa MD Primary Care Provider [phone] Jonnathan Shine MD Primary Care Provider [phone]- [phone] Encounter Details Date Type Department Care Team (Late st Contact Info) Description 03/09/2016 Abstract [facility] [address] [place] [address] Mitchel Valdez MD Social History Tobacco Use Types Packs/Day Years Used Date Smoking Tobacco: Never Alcohol Use Standard Drinks/Week Comments No 0 (1 standard drink = 0.6 oz pur e alcohol) Sex and Gender Information Value Date Recorded Sex Assigned at Male 08/10/2019 9:44 AM CDT Legal Sex Male 8:36 AM AGRICULTURAL CROP FARM MANAGER Gender Identity Male 08/10/2019 9:44 AM CDT Sexual Orientation Straight 03/16/2021 9: 15 AM AGRICULTURAL CROP FARM MANAGER documented as of this encounter Plan of [...] Rule Out 02/20/2021 02/20/2021 02/20/2021 2:32 PM AGRICULTURAL CROP FARM MANAGER COVID-19 Confirmed 02/20/2021 02/20/2021 12:32 AM AGRICULTURAL CROP FARM MANAGER documented as of this encounter Care Teams Cement Sack Breaker Relationship Specialty Start Date End Date Dannielle Suero MD PCP - General FAMILY PRACTICE 03/02/16 07/19/19 Mark Campa MD PCP - General FAMILY PRACTICE 07/20/19 11/06/19 [place] [address] [address] PCP - General PHYSICIAN PREMIUM CARD CANCELLATION CLERK 11/07/19 05/05/20 Mark Campa MD PCP - General FAMILY PRACTICE 05/06/20 09/06/20 Mark Campa MD PCP - General FAMILY PRACTICE 02/20/21 07/02/21 Jonnathan Shine MD [address] [place] [phone] PCP - General FAMILY PRACTICE 07/03/21 documented as of this encounter
--- OUTSIDE RECORDS SUMMARY | 2024-09-26 10:56 | XMS_ITS | Encounter Summary ---
Author Organization [facility] Address [facility] [place] [address] Care Team Providers Care Dynamics Ax Developer Name Role Phone Jnonathan Shine MD Primary Care Provider [phone] Encounter Details Date Type Department Care Team (Late st Contact Info) Description 01/04/2022 DrDoctort Message Enc [facility] [place] [address] Abhilash Charlton MD [address] [place] [address] Visit Follow Up Social History Tobacco Use [...] AM CDT Legal Sex Male 8:36 AM NICKEL PLANT OPERATOR Gender Identity Male 08/10/2019 9:44 AM CDT Sexual Orientation Straight 03/16/2021 9: 15 AM NICKEL PLANT OPERATOR COVID-19 Exposure Response Date Recorded In the last 10 days, have yo u been in contact with someone who was confirmed or suspected to have Coronavirus/COVID-19? No / Unsure 01/04/2022 3:53 PM NICKEL PLANT OPERATOR documented as of this encounter Functional Status [...] on filedocumented in this encounter Care Teams Dynamics Ax Developer Relationship Specialty Start Date End Date Jonnathan Shine MD [address] [place] [address] PCP - General FAMILY PRACTICE 07/03/21 documented as of this encounter
--- OUTSIDE RECORDS SUMMARY | 2024-09-26 10:56 | XMS_ITS | Clinical Summary ---
Author Organization [facility] Address [address] [place] [address] Care Team Providers Care Gis Geographer Name Role Phone Jonnathan Shine MD Primary [...] AM CDT Legal Sex Male 8:36 AM LUMBER RACKER Gender Identity Male 08/10/2019 9:44 AM CDT Sexual Orientation Straight 03/16/2021 9: 15 AM LUMBER RACKER Last Filed Vital Signs Vital Sign Reading Time Taken Comments Blood Pressure 140/82 03/14/2022 1:38 PM LUMBER RACKER Pulse 77 03/14/2022 1:38 PM LUMBER RACKER Temperature 36.1 C (96.9 F) 03/10/2021 4:04 PM LUMBER RACKER Respiratory Rate 20 03/10/2021 4:04 PM LUMBER RACKER Oxygen Saturation 97% 01/29/2022 3:18 PM LUMBER RACKER Inhaled Oxygen Concentration - - Weight 92.5 kg (204 lb) 03/14/2022 1:38 PM LUMBER RACKER Height 175.3 cm (5' 9) 03/14/2022 1:38 PM LUMBER RACKER Body Mass Index 30.13 03/14/2022 1:38 PM LUMBER RACKER Plan of Treatment Health Maintenance Due Date Last Done Comments Colorectal Cancer Screening Colonoscopy (10 Years) 1962 Annual Physical 1965 Hepatitis C 1980 DTaP, Tdap and Td Vaccines ( 1 - Tdap) 1981 Pneumococcal Vaccine: 50+ Ye ars (1 of 1 - PCV) 2012 Zoster Vaccines (1 of 2) 2012 COVID-19 Vaccine (2023-2 5 season) 2023 RSV Immunization or 60+ [...] this topic Medical Devices Implanted Type Area Electrostatic Painter Device Identifier Shelf Expiration Date Model / Serial / Lot Plate [id number] Titanium 4 Hole Lock Low Profile Variax Bone 16x1.3mm Fibula Lateral Nonsterile - [id number] Implanted:Qty: 1 on 03/10/2021 by Abhilash Charlton MD at [facility] Plate Left: Ankle [employer] ELENA [id number] / / Screw Screw Description:Right shoulder Screw Bone 3.5mm 14mm Variax Titanium T10 Full Thread Foot Ankle Self Tap Nonsterile Yellow Lock Plate System - [id number] Implanted:Qty: 1 on 03/10/2021 by Abhilash Charlton MD at [facility] Screw Left: Ankle [employer]LE[employer] [id number] / / Screw Bone 3.5mm 16mm Variax Titanium T10 Full Thread Foot Ankle Self Tap Nonsterile Yellow Lock Plate System - [id number] Implanted:Qty: 1 on 03/10/2021 by Abhilash Charlton MD at [facility] Screw Left: Ankle [employer] [id number] / / Screw Bone 3.5mm 20mm Titanium T10 Full Thread Self Tap Stardrive Nonsterile Yellow Variax Foot Plate System - [id number] Implanted:Qty: 1 on 03/10/2021 by Abhilash Charlton MD at [facility] Screw Left: Ankle [employer] DIV [employer] [id number] / / Screw Locking Nanci T10 3.5 X 14mm - [id number] Implanted:Qty: 1 on 03/10/2021 by Abhilash Charlton MD at [facility] Screw Left: Ankle [employer] [id number] / / Screw Locking Nanci T10 3.5 X 16mm - [id number] Implanted:Qty: 1 on 03/10/2021 by Abhilash Charlton MD at [facility] Screw Left: Ankle [employer] - DIV [employer] ELE[employer] [id number] / / Screw Locking [place] T10 3.5 X 18mm - [id number] Implanted:Qty: 1 on 03/10/2021 by Abhilash Charlton MD at [facility] Screw Left: Ankle [employer] DIV [employer] ELE[employer] [id number] / / Screw Locking Nanci T10 3.5 X 20mm - [id number] Implanted:Qty: 1 on 03/10/2021 by Abhilash Charlton MD at [facility] Screw Left: Ankle [employer] DIV [employer] ELE[employer] [id number] / / 3.5 X 16mm Locking Screw Implanted:Qty: 1 on 03/10/2021 by Abhilash Charlton MD at [facility] Left: Ankle [employer] [id number] / / 3.5 X 12 Mm Locking Screw Implanted:Qty: 1 on 03/10/2021 by Abhilash Charlton MD at [facility] Left: Ankle [employer] - DIV [employer] [id number] / / Suture [place], Corkscrew 3.5 X 12.1 Mm Implanted:Qty: 1 on 03/10/2021 by Abhilash Charlton MD at [facility] Left: Ankle [employer] 10/18/2024 [id number] / / [id number] Explanted Type Area Electrostatic Painter Device Identifier Shelf Expiration Date Model / Serial / Lot 2.6 X 135mm Drill Bit Explanted:Qty: 1 on 03/10/2021 by Abhilash Charlton MD at [facility] Left: Ankle [employer] [id number] / / 2 X 135 Mm Drill Bit Explanted:Qty: 1 on 03/10/2021 by Abhilash Charlton MD at [facility] Left: Ankle [id number] / / T10 Blade Explanted:Qty: 1 on 03/10/2021 by Abhilash Charlton MD at [facility] Left: Ankle [employer]LENA [id number] / / Insurance MEDICAID Care Teams Gis Geographer Relationship Specialty Start Date End Date Jonnathan Shine MD [address] [place] [address] PCP - General FAMILY PRACTICE 07/03/21
--- OUTSIDE RECORDS SUMMARY | 2024-09-26 10:56 | XMS_ITS | Encounter Summary ---
Author Organization [facility] Address [address] [place] [address] Care Team Providers Care Low Vision Therapist Name Role Phone Dannielle Suero MD Primary Care Provider [phone] Mark Campa MD Primary Care Provider + [phone] Jerome Gonzalez Primary Care Provider [phone] Mark Campa MD Primary Care Provider + [phone] Mark Campa MD Primary Care Provider + [phone] Jonnathan Shine MD Primary Care Provider [phone]- [phone] Encounter Details Date Type Department Care Team (Late st Contact Info) Description 07/26/2018 Abstract SFL CONVERSION [address] [place] [address] , Generic Conversion, Social History Tobacco Use Types Packs/Day Years Used Date Smoking Tobacco: Former Alcohol Use Standard Drinks/Week Comments No 0 (1 standard drink = 0.6 oz pur e alcohol) Sex and Gender Information Value Date Recorded Sex Assigned at Male 08/10/2019 9:44 AM CDT Legal Sex Male 8:36 AM HIGH PRESSURE OPERATOR Gender Identity Male 08/10/2019 9:44 AM CDT Sexual Orientation Straight 03/16/2021 9: 15 AM HIGH PRESSURE OPERATOR documented as of this encounter Plan [...] Rule Out 02/20/2021 02/20/2021 02/20/2021 2:32 PM HIGH PRESSURE OPERATOR COVID-19 Confirmed 02/20/2021 02/20/2021 12:32 AM HIGH PRESSURE OPERATOR documented as of this encounter Care Teams Low Vision Therapist Relationship Specialty Start Date End Date Dannielle Suero MD PCP - General FAMILY PRACTICE 03/02/16 07/19/19 Mark Campa MD PCP - General FAMILY PRACTICE 07/20/19 11/06/19 [place] [address] [place] [address] PCP - General PHYSICIAN STRATEGIC PROCUREMENT MANAGER 11/07/19 05/05/20 Mark Campa MD PCP - General FAMILY PRACTICE 05/06/20 09/06/20 Mark Campa MD PCP - General FAMILY PRACTICE 02/20/21 07/02/21 Jonnathan Shine MD [address] [place] [id number] PCP - General FAMILY PRACTICE 07/03/21 documented as of this encounter
--- NOTE | 2024-09-26 11:18 | ED_ITS ---
HPI - Extremity Injury (Lower) General Chief Complaint: Extremity Injury, Lower Stated Complaint: left knee pain Source: patient Mode of arrival: ambulatory Limitations: no limitations History of Present Illness HPI Narrative: 64-year-old male with a history of dyslipidemia, left ankle fracture status post surgery in 2020 with gait instability, neuropathy involving left lower extremity, trigger finger of left hand had an accidental fall this morning and sustained -- left knee bruising with left knee pain. No head injury or loss of consciousness. No neck or back pain. Left ankle pain is chronic and unchanged. MD complaint: knee injury Onset (ago): hour(s) ( 2 hours ago) Injury: Left: knee Type of Injury: blunt Place: street/outdoors Severity: moderate Relieving factors: immobilization Exacerbating factors: movement Context: fall Other symptoms: none Related Data Allergies Allergy/AdvReac Type Severity Reaction Status Date / Time gadobenic acid (From Allergy Mild Vomiting Verified 09/26/24 10:58 Multihance) Gadolinium-Containing Allergy Mild Vomiting Verified 09/26/24 10:58 Contrast Medi Review of Systems Review of Systems: All systems reviewed & are unremarkable except as noted in HPI and below PMFSH Past Medical History Medical History Screen for colon cancer Chest pain Pain in right hand Trigger finger of right hand Elevated cholesterol Fracture dislocation of right ankle Surgical History Surgical History History of repair of right rotator cuff Family History Family History Father Diabetes mellitus Mother Diabetes mellitus Social History Social History Years smoked: 15 Smoking status: Never smoker Tobacco type: cigarettes Second hand tobacco smoke exposure: Yes Alcohol intake: current Drinks per week: 6 Substance use: former Substance use type: marijuana Do You Feel Safe in your Home?: Yes Lack of Transportation: No Lack of Food: Never True Current Housing: I Have Housing Concerned About Future Housing: No Difficulty Paying Gas/Electric Bills: No Difficulty Paying for Meds: No Currently Unemployed: YES Education: Trade/Vocational Certificate Difficulty w/ Childcare or Family Care: No Living arrangements: with family Additional living arrangements comments: with sp Occupation/Education: occupation Gender identity (if verbalized by the patient): Male Sexual Orientation (if Verbalized by the Patient): Straight or Heterosexual Spiritual care concerns: Yes Agree to blood products: Yes Exam Narrative: vitals are stable. Const: General: no acute distress Orientation/consciousness: patient oriented x3 Limitations: no limitations HENMT: Head: normal to inspection Ears: external ears normal Face/Nose/Sinus: Normal external nose present Face and sinus: normal facial exam Mouth: Yes Normal oral and palatal mucosa present Throat: posterior oropharynx normal Eyes: Conjunctivae: conjunctivae normal Pupils: Equal, round and reactive pupils present EOM: EOMs intact bilaterally Direct Ophthalmoscopy: no photophobia Neck: Neck: normal visual inspection, no lymphadenopathy and no meningeal signs Chest: Chest palpation & inspection: normal inspection of the chest Resp: Effort & Inspection: normal respiratory effort Auscultation: clear to auscultation bilaterally Cardio: Rate: regular rate Rhythm: regular rhythm GI: GI Palp: Yes Soft to palpation Auscultation: normal bowel sounds Other: No tenderness/rigidity / rebound. : General: Yes no CVA tenderness Back/Spine/Pelvis: Back: no CVA tenderness Skin: Other: Left knee abrasion measuring 3 cm. Neuro: General: patient oriented x3, moves all extremities, no meningeal signs, no focal motor deficits and CN's II-XI intact bilaterally Speech: normal speech Extrem: Other: Left knee abrasion with left knee pain left knee-- no tenderness. Negative stress test. Psych: Mental Status: mental status grossly normal Affect: normal affect Attitude: cooperative Course Course Emergency Course: Accidental fall with left knee pain and abrasion-- x-ray did not show any acute findings Vital Signs Vital signs: Vital Signs Temperature 36.3 C L 09/26/24 10:50 Pulse Rate 75 09/26/24 10:50 Respiratory Rate 20 09/26/24 10:50 Blood Pressure 130/87 09/26/24 10:50 Pulse Oximetry 96 09/26/24 10:50 Oxygen Delivery Room Air 09/26/24 10:50 Temperature 36.3 C L 09/26/24 10:50 Pulse Rate 75 09/26/24 10:50 Respiratory Rate 20 09/26/24 10:50 Blood Pressure 130/87 09/26/24 10:50 Pulse Oximetry 96 09/26/24 10:50 Oxygen Delivery Room Air 09/26/24 10:50 MDM - Extremity Injury (Lower) MDM Narrative Medical decision making narrative: accidental fall left knee abrasion knee pain Differential Diagnosis Differential diagnosis: Likely other ( knee fracture) Medical Records Attestation: I reviewed the patient's medical records. Discharge Plan Discharge Clinical Impression: Abrasion Knee pain Qualifiers: Chronicity: acute Laterality: left Qualified Code(s): M25.562 - Pain in left knee Patient Disposition: Home Condition: Stable Instructions: Antibiotic Form, Knee Pain (ED), Fall Prevention (ED) Patient Language: Luxembourger Prescriptions: New diclofenac sodium 50 mg tablet,delayed release (DR/EC) 50 mg PO BID Qty: 20 0RF No Action rosuvastatin [Crestor] 20 mg tablet 20 mg PO DAILY Qty: 90 3RF gabapentin 800 mg tablet 800 mg PO BID Qty: 60 3RF duloxetine 60 mg capsule,delayed release(DR/EC) 60 mg PO DAILY Qty: 90 2RF Follow-up/Referrals: Liu Christianson MD [Primary Care Provider] - Time of Disposition: 12:16
[2024-09-26] MEDS: KETOROLAC 30 MG/ML VIAL (*BKC) IM (12:20)
== END 2024-09-26 12:25 | disposition home or self-care (01) ==
PROVIDERS: Emergency Provider Internal Medicine Critical Care Medicine; PCP Family Medicine
DX: S80.212A Abrasion, left knee, initial encounter (principal); W19.XXXA Unspecified fall, initial encounter
CPT/HCPCS: 73562; 96372; 99283; J1885

== ENCOUNTER 2024-10-12 07:45 | Emergency (ER) | payer OTHER, SELFPAY ==
--- NOTE | ~2024-10-12 | XR_ITS ---
EXAMINATION: XR ribs LT 2V w CXR 2V DATE: 10/12/2024 08:39 INDICATION: Fall TECHNIQUE: PA and lateral views of the chest and 3 views of the left ribs were obtained. COMPARISON: Chest radiograph dated 03/31/[address] dated 10/12/2024 FINDINGS: Old healed fracture deformities at the anterior left fifth-seventh ribs which can be seen on prior chest radiograph and on the CT of the abdomen and pelvis. No acute rib fractures identified. Mild linear discoid atelectasis/scarring at the left costophrenic angle. No other airspace opacities, pulmonary edema, pleural effusion or pneumothorax. Cardiomediastinal silhouette is normal. Mild thoracic spondylosis with bridging osteophytes at multiple levels consistent with diffuse idiopathic skeletal hyperostosis (DISH). IMPRESSION: 1. No rib fracture or acute cardiopulmonary disease. Reviewed, dictated and finalized at location A.
--- NOTE | ~2024-10-12 | CT_ITS ---
EXAMINATION: CT abdomen pelvis w con DATE: 10/12/2024 08:40 INDICATION: Left upper quadrant abdominal pain post fall TECHNIQUE: Computed tomography (CT) of the abdomen and pelvis was performed with 100 mL Omnipaque-350 intravenous contrast. Automated exposure control and iterative reconstruction technique were employed. The dose-length product was 969.22 mGy-cm. COMPARISON: MR abdomen dated 04/09/2024 FINDINGS: Mild basilar atelectasis/scarring at the lingula. Heart size is normal. No pericardial or pleural effusion. Calcified paraesophageal lymph nodes consistent with old granulomatous disease. Diffuse hepatic steatosis. Gallbladder, pancreas, right kidney and bilateral adrenal glands are normal. A couple low- attenuation left renal cysts the largest measuring 1.1 cm. Chronic mild lobular contour along the anterosuperior medial margin of the spleen where there is a small suture line. Correlate with surgical history. Bowels including the appendix are normal. Bladder is normal. Prostatomegaly measuring 6.4 x 3.9 cm. Small right and moderate-sized left fat-containing inguinal hernias. No free intraperitoneal gas or fluid. No pathologically enlarged abdominal or pelvic lymphadenopathy. Mild scattered calcified atherosclerosis of the normal caliber aorta and many of the other arteries. Suggestion of a few old healed anterior left inferior rib fractures. No acute osseous abnormality. Mild lumbar levocurvature with severe degenerative disc disease at L5-S1 and otherwise mild lumbar and lower thoracic spondylosis. IMPRESSION: 1. No acute osseous abnormality or acute intra-abdominal/pelvic process. 2. Diffuse hepatic steatosis. Reviewed, dictated and finalized at location A.
--- NOTE | ~2024-10-12 | XR_ITS ---
XR hand LT min 3V 10/12/2024 08:41 INDICATION: Left hand pain after fall PROCEDURE: 3 views left hand COMPARISON: No prior studies for comparison. FINDINGS: Fracture, dislocation or subluxation is not identified. The soft tissues appear within normal limits. No foreign bodies are identified. IMPRESSION: 1: NO ACUTE BONE OR JOINT ABNORMALITY IDENTIFIED. Reviewed, dictated and finalized at location O.
[2024-10-12 07:45] VITALS: BP 142/92; PULSE 85; RESP 16; TEMP 36.4; O2SAT 97
--- OUTSIDE RECORDS SUMMARY | 2024-10-12 07:49 | XMS_ITS | Encounter Summary ---
Author Organization [facility] Address [address] [place] [address] Care Team Providers Care Inside Polisher Name Role Phone Dannielle Suero MD Primary Care Provider [phone] Mark Campa MD Primary Care Provider [phone] Jerome Gonzalez Primary Care Provider [phone] Mark Campa MD Primary Care Provider [phone] Mark Campa MD Primary Care Provider [phone] Jonnatahn Shine MD Primary Care Provider [phone]- [phone] Encounter Details Date Type Department Care Team (Late st Contact Info) Description 03/09/2016 Abstract [facility] [address] [place] [address] Mitchel Valdez MD Social History Tobacco Use Types Packs/Day Years Used Date Smoking Tobacco: Never Alcohol Use Standard Drinks/Week Comments No 0 (1 standard drink = 0.6 oz pur e alcohol) Sex and Gender Information Value Date Recorded Sex Assigned at Male 08/10/2019 9:44 AM CDT Legal Sex Male 8:36 AM MITER OPERATOR Gender Identity Male 08/10/2019 9:44 AM CDT Sexual Orientation Straight 03/16/2021 9: 15 AM MITER OPERATOR documented as of this encounter Plan [...] Rule Out 02/20/2021 02/20/2021 02/20/2021 2:32 PM MITER OPERATOR COVID-19 Confirmed 02/20/2021 02/20/2021 12:32 AM MITER OPERATOR documented as of this encounter Care Teams Inside Polisher Relationship Specialty Start Date End Date Dannielle Suero MD PCP - General FAMILY PRACTICE 03/02/16 07/19/19 Mark Campa MD PCP - General FAMILY PRACTICE 07/20/19 11/06/19 [place] [id number] [address] PCP - General PHYSICIAN FLANGING OPERATOR 11/07/19 05/05/20 Mark Campa MD PCP - General FAMILY PRACTICE 05/06/20 09/06/20 Mark Campa MD PCP - General FAMILY PRACTICE 02/20/21 07/02/21 Jonnathan Shine MD [address] [place] [id number] PCP - General FAMILY PRACTICE 07/03/21 documented as of this encounter
--- OUTSIDE RECORDS SUMMARY | 2024-10-12 07:49 | XMS_ITS | Encounter Summary ---
Author Organization [facility] Address [facility] [place] [address] Care Team Providers Care Valve Fitter Name Role Phone Jonnathan Shine MD Primary Care Provider [phone] Encounter Details Date Type Department Care Team (Late st Contact Info) Description 01/04/2022 [facility] [place] [address] Abhilash Charlton MD [address] [place] [address] Visit Follow Up Social History Tobacco Use [...] AM CDT Legal Sex Male 8:36 AM INTENSIVE CARE NURSE Gender Identity Male 08/10/2019 9:44 AM CDT Sexual Orientation Straight 03/16/2021 9: 15 AM INTENSIVE CARE NURSE COVID-19 Exposure Response Date Recorded In the last 10 days, have yo u been in contact with someone who was confirmed or suspected to have Coronavirus/COVID-19? No / Unsure 01/04/2022 3:53 PM INTENSIVE CARE NURSE documented as of this encounter Functional Status [...] on filedocumented in this encounter Care Teams Valve Fitter Relationship Specialty Start Date End Date Jonnathan Shine MD [address] [place] [address] PCP - General FAMILY PRACTICE 07/03/21 documented as of this encounter
--- OUTSIDE RECORDS SUMMARY | 2024-10-12 07:49 | XMS_ITS | Clinical Summary ---
Author Organization [facility] Address [address] [place] [address] Care Team Providers Care Plant Maintenance Worker Name Role Phone Jonnathan Shine MD Primary [...] AM CDT Legal Sex Male 8:36 AM IS/IT PROJECT MANAGER Gender Identity Male 08/10/2019 9:44 AM CDT Sexual Orientation Straight 03/16/2021 9: 15 AM IS/IT PROJECT MANAGER Last Filed Vital Signs Vital Sign Reading Time Taken Comments Blood Pressure 140/82 03/14/2022 1:38 PM IS/IT PROJECT MANAGER Pulse 77 03/14/2022 1:38 PM IS/IT PROJECT MANAGER Temperature 36.1 C (96.9 F) 03/10/2021 4:04 PM IS/IT PROJECT MANAGER Respiratory Rate 20 03/10/2021 4:04 PM IS/IT PROJECT MANAGER Oxygen Saturation 97% 01/29/2022 3:18 PM IS/IT PROJECT MANAGER Inhaled Oxygen Concentration - - Weight 92.5 kg (204 lb) 03/14/2022 1:38 PM IS/IT PROJECT MANAGER Height 175.3 cm (5' 9) 03/14/2022 1:38 PM IS/IT PROJECT MANAGER Body Mass Index 30.13 03/14/2022 1:38 PM IS/IT PROJECT MANAGER Plan of Treatment Health Maintenance Due Date [...] this topic Medical Devices Implanted Type Area Copy Operator Device Identifier Shelf Expiration Date Model / Serial / Lot Plate [id number] Titanium 4 Hole Lock Low Profile Variax Bone 16x1.3mm Fibula Lateral Nonsterile - [id number] Implanted:Qty: 1 on 03/10/2021 by Abhilash Charlton MD at [facility] Plate Left: Ankle [employer] DIV [employer] ELENA [id number] / / Screw Screw Description:Right shoulder Screw Bone 3.5mm 14mm Variax Titanium T10 Full Thread Foot Ankle Self Tap Nonsterile Yellow Lock Plate System - [id number] Implanted:Qty: 1 on 03/10/2021 by Abhilash Charlton MD at [facility] Screw Left: Ankle [employer] DIV [employer]LE[employer] [id number] / / Screw Bone 3.5mm 16mm Variax Titanium T10 Full Thread Foot Ankle Self Tap Nonsterile Yellow Lock Plate System - [id number] Implanted:Qty: 1 on 03/10/2021 by Abhilash Charlton MD at [facility] Screw Left: Ankle [employer] DIV [employer] ELE[employer] [id number] / / Screw Bone 3.5mm 20mm Titanium T10 Full Thread Self Tap Stardrive Nonsterile Yellow Variax Foot Plate System - [id number] Implanted:Qty: 1 on 03/10/2021 by Abhilash Charlton MD at [facility] Screw Left: Ankle [employer] - DIV [employer]LE[employer] [id number] / / Screw Locking [place] T10 3.5 X 14mm - [id number] Implanted:Qty: 1 on 03/10/2021 by Abhilash Charlton MD at [facility] Screw Left: Ankle [employer] DIV [employer] [id number] / / Screw Locking [place] T10 3.5 X 16mm - [id number] Implanted:Qty: 1 on 03/10/2021 by Abhilash Charlton MD at [facility] Screw Left: Ankle [employer] - DIV [employer] ELENA [id number] / / Screw Locking [place] T10 3.5 X 18mm - [id number] Implanted:Qty: 1 on 03/10/2021 by Abhilash Charlton MD at [facility] Screw Left: Ankle [employer] - DIV [employer] ELENA [id number] / / Screw Locking [place] T10 3.5 X 20mm - [id number] Implanted:Qty: 1 on 03/10/2021 by Abhilash Charlton MD at [facility] Screw Left: Ankle [employer] - DIV [employer]NE [employer] ELENA [id number] / / 3.5 X 16mm Locking Screw Implanted:Qty: 1 on 03/10/2021 by Abhilash Charlton MD at [facility] Left: Ankle [employer] - DIV [employer]NE [employer] ELENA [id number] / / 3.5 X 12 Mm Locking Screw Implanted:Qty: 1 on 03/10/2021 by Abhilash Charlton MD at [facility] Left: Ankle [employer] - DIV [employer]NE MAR[employer] ELENA [id number] / / Suture [place], Corkscrew 3.5 X 12.1 Mm Implanted:Qty: 1 on 03/10/2021 by Abhilash Charlton MD at [facility] Left: Ankle [employer] 10/18/2024 [id number] / / [id number] Explanted Type Area Copy Operator Device Identifier Shelf Expiration Date Model / Serial / Lot 2.6 X 135mm Drill Bit Explanted:Qty: 1 on 03/10/2021 by Abhilash Charlton MD at [facility] Left: Ankle [employer] - DIV [employer] ELENA [id number] / / 2 X 135 Mm Drill Bit Explanted:Qty: 1 on 03/10/2021 by Abhilash Charlton MD at [facility] Left: Ankle [id number] / / T10 Blade Explanted:Qty: 1 on 03/10/2021 by Abhilash Charlton MD at [facility] Left: Ankle [employer] - DIV [employer] ELENA [id number] / / Insurance MEDICAID Care Teams Plant Maintenance Worker Relationship Specialty Start Date End Date Jonnathan Shine MD [address] [place] [address] PCP - General FAMILY PRACTICE 07/03/21
--- OUTSIDE RECORDS SUMMARY | 2024-10-12 07:49 | XMS_ITS | Encounter Summary ---
Author Organization [facility] Address [address] [place] [address] Care Team Providers Care Last Inserter Name Role Phone Dannielle Suero MD Primary Care Provider [phone] Mark Campa MD Primary Care Provider [phone] Jerome Gonzalez Primary Care Provider [phone] Mark Campa MD Primary Care Provider [phone] Mark Campa MD Primary Care Provider [phone] Jonnathan Shine MD Primary Care Provider [phone]- [phone] Encounter Details Date Type Department Care Team (Late st Contact Info) Description 07/26/2018 Abstract [facility] CONVERSION [address] [place] [address] , Generic Conversion, Social History Tobacco Use Types Packs/Day Years Used Date Smoking Tobacco: Former Alcohol Use Standard Drinks/Week Comments No 0 (1 standard drink = 0.6 oz pur e alcohol) Sex and Gender Information Value Date Recorded Sex Assigned at Male 08/10/2019 9:44 AM CDT Legal Sex Male 8:36 AM PACKING INSPECTOR Gender Identity Male 08/10/2019 9:44 AM CDT Sexual Orientation Straight 03/16/2021 9: 15 AM PACKING INSPECTOR documented as of this encounter Plan of [...] Rule Out 02/20/2021 02/20/2021 02/20/2021 2:32 PM PACKING INSPECTOR COVID-19 Confirmed 02/20/2021 02/20/2021 12:32 AM PACKING INSPECTOR documented as of this encounter Care Teams Last Inserter Relationship Specialty Start Date End Date Dannielle Suero MD PCP - General FAMILY PRACTICE 03/02/16 07/19/19 Mark Campa MD PCP - General FAMILY PRACTICE 07/20/19 11/06/19 [place] [address] [place] [address] PCP - General PHYSICIAN CATTLE BROKER 11/07/19 05/05/20 Mark Campa MD PCP - General FAMILY PRACTICE 05/06/20 09/06/20 Mark Campa MD PCP - General FAMILY PRACTICE 02/20/21 07/02/21 Jonnathan Shine MD [address] [place] [id number] PCP - General FAMILY PRACTICE 07/03/21 documented as of this encounter
[2024-10-12 08:06] LABS: Hematocrit 44.7 % (40.0-54.0); Hemoglobin 14.6 g/dL (14.0-18.0); Immature Granulocyte Percent A 0.8 % (0.0-0.0); Lymphocytes Absolute Auto 2.52 K/mm3 (1.10-4.50); Mean Corpuscular HGB Conc 32.7 g/dL (32-36); Mean Corpuscular Hemoglobin 28.8 pg (27.0-31.0); Mean Corpuscular Volume 88.2 fL (78.0-102.0); Nucleated Red Blood Cells Absolute Auto 0.00 K/mm3 (0.00-0.00); Nucleated Red Blood Cells Perc 0.0 % (0-0.0); Platelet Count Result 260 K/mm3 (150-420); Red Blood Count 5.07 M/mm3 (4.70-6.10); White Blood Count 9.1 K/mm3 (4.8-10.8)
--- OUTSIDE RECORDS SUMMARY | 2024-10-12 08:09 | XMS_ITS | Encounter Summary ---
Author Organization [facility] Address [facility] [place] [address] Care Team Providers Care Horse Riding Coach Or Instructor Name Role Phone Jonnathan Shine MD Primary Care Provider [phone] Encounter Details Date Type Department Care Team (Late st Contact Info) Description 01/04/2022 [employer] Message Enc [facility] [address] Abhilash Charlton MD [address] [place] [address] Visit Follow Up Social History Tobacco Use [...] AM CDT Legal Sex Male 8:36 AM FOSTER CARE CASE MANAGER Gender Identity Male 08/10/2019 9:44 AM CDT Sexual Orientation Straight 03/16/2021 9: 15 AM FOSTER CARE CASE MANAGER COVID-19 Exposure Response Date Recorded In the last 10 days, have yo u been in contact with someone who was confirmed or suspected to have Coronavirus/COVID-19? No / Unsure 01/04/2022 3:53 PM FOSTER CARE CASE MANAGER documented as of this encounter Functional Status [...] on filedocumented in this encounter Care Teams Horse Riding Coach Or Instructor Relationship Specialty Start Date End Date Jonnathan Shine MD [address] [place] [address] PCP - General FAMILY PRACTICE 07/03/21 documented as of this encounter
--- OUTSIDE RECORDS SUMMARY | 2024-10-12 08:09 | XMS_ITS | Encounter Summary ---
Author Organization [facility] Address [address] [place] [address] Care Team Providers Care Automotive Quality Manager Name Role Phone Dannielle Suero MD Primary Care Provider [phone] Mark Campa MD Primary Care Provider [phone] Jerome Gonzalez Primary Care Provider [phone] Mark Campa MD Primary Care Provider [phone] Mark Campa MD Primary Care Provider [phone] Jonnathan Shine MD Primary Care Provider [phone]- [phone] Encounter Details Date Type Department Care Team (Late st Contact Info) Description 07/26/2018 Abstract [facility] CONVERSION [address] [place] [address] , Generic Conversion, Social History Tobacco Use Types Packs/Day Years Used Date Smoking Tobacco: Former Alcohol Use Standard Drinks/Week Comments No 0 (1 standard drink = 0.6 oz pur e alcohol) Sex and Gender Information Value Date Recorded Sex Assigned at Male 08/10/2019 9:44 AM CDT Legal Sex Male 8:36 AM PIZZA COOK Gender Identity Male 08/10/2019 9:44 AM CDT Sexual Orientation Straight 03/16/2021 9: 15 AM PIZZA COOK documented as of this encounter Plan of [...] Rule Out 02/20/2021 02/20/2021 02/20/2021 2:32 PM PIZZA COOK COVID-19 Confirmed 02/20/2021 02/20/2021 12:32 AM PIZZA COOK documented as of this encounter Care Teams Automotive Quality Manager Relationship Specialty Start Date End Date Dannielle Suero MD PCP - General FAMILY PRACTICE 03/02/16 07/19/19 Mark Campa MD PCP - General FAMILY PRACTICE 07/20/19 11/06/19 [place] [address] [place] [address] PCP - General PHYSICIAN CENTRAL OFFICE REPAIRER SUPERVISOR 11/07/19 05/05/20 Mark Campa MD PCP - General FAMILY PRACTICE 05/06/20 09/06/20 Mark Campa MD PCP - General FAMILY PRACTICE 02/20/21 07/02/21 Jonnathan Shine MD [address] [place] [id number] PCP - General FAMILY PRACTICE 07/03/21 documented as of this encounter
--- OUTSIDE RECORDS SUMMARY | 2024-10-12 08:09 | XMS_ITS | Encounter Summary ---
Author Organization [facility] Address [address] [place] [address] Care Team Providers Care Administrator Pesticide Name Role Phone Dannielle Suero MD Primary Care Provider [phone] Mark Campa MD Primary Care Provider [phone] Jerome Gonzalez Primary Care Provider [phone] Mark Campa MD Primary Care Provider [phone] Mark Campa MD Primary Care Provider [phone] Jonnathan Shine MD Primary Care Provider [phone]- [phone] Encounter Details Date Type Department Care Team (Late st Contact Info) Description 03/09/2016 Abstract [facility] [address] [place] [address] Mitchel Valdez MD Social History Tobacco Use Types Packs/Day Years Used Date Smoking Tobacco: Never Alcohol Use Standard Drinks/Week Comments No 0 (1 standard drink = 0.6 oz pur e alcohol) Sex and Gender Information Value Date Recorded Sex Assigned at Male 08/10/2019 9:44 AM CDT Legal Sex Male 8:36 AM FRAME CARVER SPINDLE Gender Identity Male 08/10/2019 9:44 AM CDT Sexual Orientation Straight 03/16/2021 9: 15 AM FRAME CARVER SPINDLE documented as of this encounter Plan of [...] Rule Out 02/20/2021 02/20/2021 02/20/2021 2:32 PM FRAME CARVER SPINDLE COVID-19 Confirmed 02/20/2021 02/20/2021 12:32 AM FRAME CARVER SPINDLE documented as of this encounter Care Teams Administrator Pesticide Relationship Specialty Start Date End Date Dannielle Suero MD PCP - General FAMILY PRACTICE 03/02/16 07/19/19 Mark Campa MD PCP - General FAMILY PRACTICE 07/20/19 11/06/19 [place] [id number] [address] PCP - General PHYSICIAN MINE CAR MECHANIC 11/07/19 05/05/20 Mark Campa MD PCP - General FAMILY PRACTICE 05/06/20 09/06/20 Mark Campa MD PCP - General FAMILY PRACTICE 02/20/21 07/02/21 Jonnathan Shine MD [address] [place] [id number] PCP - General FAMILY PRACTICE 07/03/21 documented as of this encounter
--- OUTSIDE RECORDS SUMMARY | 2024-10-12 08:09 | XMS_ITS | Clinical Summary ---
Author Organization [facility] Address [address] [place] [address] Care Team Providers Care Residence Leasing Agent Name Role Phone Jonnathan Shine MD Primary [...] AM CDT Legal Sex Male 8:36 AM FLOOR SPECIALIST Gender Identity Male 08/10/2019 9:44 AM CDT Sexual Orientation Straight 03/16/2021 9: 15 AM FLOOR SPECIALIST Last Filed Vital Signs Vital Sign Reading Time Taken Comments Blood Pressure 140/82 03/14/2022 1:38 PM FLOOR SPECIALIST Pulse 77 03/14/2022 1:38 PM FLOOR SPECIALIST Temperature 36.1 C (96.9 F) 03/10/2021 4:04 PM FLOOR SPECIALIST Respiratory Rate 20 03/10/2021 4:04 PM FLOOR SPECIALIST Oxygen Saturation 97% 01/29/2022 3:18 PM FLOOR SPECIALIST Inhaled Oxygen Concentration - - Weight 92.5 kg (204 lb) 03/14/2022 1:38 PM FLOOR SPECIALIST Height 175.3 cm (5' 9) 03/14/2022 1:38 PM FLOOR SPECIALIST Body Mass Index 30.13 03/14/2022 1:38 PM FLOOR SPECIALIST Plan of Treatment Health Maintenance Due Date [...] this topic Medical Devices Implanted Type Area Grazing Examiner Device Identifier Shelf Expiration Date Model / Serial / Lot Plate [id number] Titanium 4 Hole Lock Low Profile Variax Bone 16x1.3mm Fibula Lateral Nonsterile - [id number] Implanted:Qty: 1 on 03/10/2021 by Abhilash Charlton MD at [facility] Plate Left: Ankle [employer] [id number] / / Screw Screw Description:Right shoulder Screw Bone 3.5mm 14mm Variax Titanium T10 Full Thread Foot Ankle Self Tap Nonsterile Yellow Lock Plate System - [id number] Implanted:Qty: 1 on 03/10/2021 by Abhilash Charlton MD at [facility] Screw Left: Ankle [employer] [id number] / / Screw Bone 3.5mm 16mm Variax Titanium T10 Full Thread Foot Ankle Self Tap Nonsterile Yellow Lock Plate System - [id number] Implanted:Qty: 1 on 03/10/2021 by Abhilash Charlton MD at [facility] Screw Left: Ankle [employer] [id number] / / Screw Bone 3.5mm 20mm Titanium T10 Full Thread Self Tap Stardrive Nonsterile Yellow Variax Foot Plate System - [id number] Implanted:Qty: 1 on 03/10/2021 by Abhilash Charlton MD at [facility] Screw Left: Ankle [employer] [id number] / / Screw Locking Mcdowell T10 3.5 X 14mm - [id number] Implanted:Qty: 1 on 03/10/2021 by Abhilash Charlton MD at [facility] Screw Left: Ankle [employer] [id number] / / Screw Locking Mcdowell T10 3.5 X 16mm - [id number] Implanted:Qty: 1 on 03/10/2021 by Abhilash Charlton MD at [facility] Screw Left: Ankle [employer] [id number] / / Screw Locking Mcdowell T10 3.5 X 18mm - [id number] Implanted:Qty: 1 on 03/10/2021 by Abhilash Charlton MD at [facility] Screw Left: Ankle [employer] [id number] / / Screw Locking Mcdowell T10 3.5 X 20mm - [id number] Implanted:Qty: 1 on 03/10/2021 by Abhilash Charlton MD at [facility] Screw Left: Ankle [employer] [id number] / / 3.5 X 16mm Locking Screw Implanted:Qty: 1 on 03/10/2021 by Abhilash Charlton MD at [facility] Left: Ankle [employer] [id number] / / 3.5 X 12 Mm Locking Screw Implanted:Qty: 1 on 03/10/2021 by Abhilash Charlton MD at [facility] Left: Ankle [employer] [id number] / / Suture [place], [place] 3.5 X 12.1 Mm Implanted:Qty: 1 on 03/10/2021 by Abhilash Charlton MD at [facility] Left: Ankle [employer] 10/18/2024 [id number] / / [id number] Explanted Type Area Grazing Examiner Device Identifier Shelf Expiration Date Model / Serial / Lot 2.6 X 135mm Drill Bit Explanted:Qty: 1 on 03/10/2021 by Abhilash Charlton MD at [facility] Left: Ankle [employer] [id number] / / 2 X 135 Mm Drill Bit Explanted:Qty: 1 on 03/10/2021 by Abhilash Charlton MD at [facility] Left: Ankle [id number] / / T10 Blade Explanted:Qty: 1 on 03/10/2021 by Abhilash Charlton MD at [facility] Left: Ankle [employer] [id number] / / Insurance MEDICAID Care Teams Residence Leasing Agent Relationship Specialty Start Date End Date Jonnathan Shine MD [address] [place] [address] PCP - General FAMILY PRACTICE 07/03/21
[2024-10-12 08:18] LABS: Alanine Aminotransferase 40 U/L (6-50); Albumin Level 4.7 g/dL (3.5-5.1); Alkaline Phosphatase 106 U/L (38-126); Anion Gap 10 mmol/L (4-12); Aspartate Amino Transferase 30 U/L (17-59); Bilirubin,Total 0.6 mg/dL (0.2-1.3); Blood Urea Nitrogen 17 mg/dL (9-20); Calcium 9.3 mg/dL (8.4-10.2); Carbon Dioxide 26 mmol/L (22-30); Chloride 104 mmol/L (98-107); Estimated CRCL calculation 89 ml/min; Estimated Glomerular Filt Rate > 60; Glucose 145 mg/dL (65-110); Osmolality Calculated 294 mOsm/kg (285-295); Potassium 4.3 mmol/L (3.4-5.0); Sodium 140 mmol/L (137-145); Total Protein 7.7 g/dL (6.3-8.2)
--- NOTE | 2024-10-12 08:52 | ED_ITS ---
HPI - General Adult General Chief complaint: Extremity Injury, Upper Stated complaint: left wrist, left lower rib pain Time Seen by Provider: 10/12/24 07:47 Source: patient Mode of arrival: ambulatory Limitations: no limitations History of Present Illness HPI narrative: 64-year-old with a history of hyperlipidemia here with the complaints of left hand and left lower rib cage pain and left upper quadrant pain. Patient states that he fell 2 days ago at home. Denies any CP., shortness of breath. Increasing pain with deep inspiration. He also stated that lhe also has LUQ pain. no nausea or vomiting Onset (ago): day(s) (2) Radiation: abdomen Severity: moderate Quality: aching Pain Consistency: constant Relieving factors: none Exacerbating factors: movement Treatments prior to arrival: none Related Data Allergies Allergy/AdvReac Type Severity Reaction Status Date / Time gadobenic acid (From Allergy Mild Vomiting Verified 10/12/24 07:48 Multihance) Gadolinium-Containing Allergy Mild Vomiting Verified 10/12/24 08:47 Contrast Medi Review of Systems 2 Review of Systems: All systems reviewed & are unremarkable except as noted in HPI and below Constitutional: Constitutional: Reports no additional constitutional complaints Eyes: Eyes: Reports no additional eye complaints ENT: Reports system reviewed and no additional complaints, except as documented Cardiovascular: Cardiovascular: Reports no additional cardiovascular complaints Respiratory: Respiratory: Reports as per HPI Gastrointestinal: Gastrointestinal: Reports as per HPI Genitourinary: Genitourinary: Reports no additional male genitourinary complaints Musculoskeletal: Musculoskeletal: Reports as per HPI [facility] Past Medical History Medical History Screen for colon cancer Chest pain Pain in right hand Trigger finger of right hand Elevated cholesterol Fracture dislocation of right ankle Surgical History Surgical History History of repair of right rotator cuff Family History Family History Father Diabetes mellitus Mother Diabetes mellitus Social History Social History Years smoked: 15 Smoking status: Never smoker Tobacco type: cigarettes Second hand tobacco smoke exposure: Yes Alcohol intake: current Drinks per week: 6 Substance use: former Substance use type: marijuana Do You Feel Safe in your Home?: Yes Lack of Transportation: No Lack of Food: Never True Current Housing: I Have Housing Concerned About Future Housing: No Difficulty Paying Gas/Electric Bills: No Difficulty Paying for Meds: No Currently Unemployed: YES Education: Trade/Vocational Certificate Difficulty w/ Childcare or Family Care: No Living arrangements: with family Additional living arrangements comments: with sp Occupation/Education: occupation Gender identity (if verbalized by the patient): Male Sexual Orientation (if Verbalized by the Patient): Straight or Heterosexual Spiritual care concerns: Yes Agree to blood products: Yes Exam 2 Narrative: GENERAL: Well-appearing, well-nourished, and in no acute distress. HEAD: Normocephalic, atraumatic. EYES: PERRLA and EOMI. ENT: Nares clear, no rhinorrhea or epistaxis. Mucous membranes moist. minor abrasion on the nose NECK: Supple. CHEST: Clear to auscultation. No respiratory distress. HEART: Regular rate and rhythm. No murmur heard. Normal peripheral pulses. ABDOMEN: Soft, nontender, nondistended, normal active bowel sounds. EXTREMITIES: Normal range of motion. No edema. SKIN: Warm, dry, no rash. NEURO: No focal deficits. Alert and oriented x3. PSYCH: Normal mood and affect. Course Course Emergency Course: with a history of fall normal having left wrist and left upper abdominal pain CT scan of the abdomen and pelvis with contrast and left rib see orders which were all unremarkable. His lab work is unremarkable as well . Vital Signs Vital signs: Vital Signs Temperature 36.4 C 10/12/24 07:45 Pulse Rate 85 10/12/24 07:45 Respiratory Rate 16 10/12/24 07:45 Blood Pressure 142/92 H 10/12/24 07:45 Pulse Oximetry 97 10/12/24 07:45 Oxygen Delivery Room Air 10/12/24 07:45 Temperature 36.4 C 10/12/24 07:45 Pulse Rate 85 10/12/24 07:45 Respiratory Rate 16 10/12/24 07:45 Blood Pressure 142/92 H 10/12/24 07:45 Pulse Oximetry 97 10/12/24 07:45 Oxygen Delivery Room Air 10/12/24 07:45 Medical Decision Making MDM Narrative Medical decision making narrative: 70-year-old with a history of fall having left upper quadrant and left lower intercostal pain the pain CT of the abdomen and only can his lab work. Differential Diagnosis Differential Diagnosis: rib fracture , contusion , spleen injury /lacertion Medical Records Medical records reviewed: Yes I reviewed the external patient's medical records. Vital Signs Vital Signs: Vital Signs Temperature 36.4 C 10/12/24 07:45 Pulse Rate 85 10/12/24 07:45 Respiratory Rate 16 10/12/24 07:45 Blood Pressure 142/92 H 10/12/24 07:45 Pulse Oximetry 97 10/12/24 07:45 Oxygen Delivery Room Air 10/12/24 07:45 Temperature 36.4 C 10/12/24 07:45 Pulse Rate 85 10/12/24 07:45 Respiratory Rate 16 10/12/24 07:45 Blood Pressure 142/92 H 10/12/24 07:45 Pulse Oximetry 97 10/12/24 07:45 Oxygen Delivery Room Air 10/12/24 07:45 Lab Data 10/12/24 08:01 10/12/24 08:01 Labs: Lab Results 10/12/24 Range/Units 08:01 WBC 9.1 (4.8-10.8) K/mm3 RBC 5.07 (4.70-6.10) M/mm3 Hgb 14.6 (14.0-18.0) g/dL Hct 44.7 (40.0-54.0) % MCV 88.2 (78.0-102.0) fL MCH 28.8 (27.0-31.0) pg MCHC 32.7 (32-36) g/dL RDW 13.6 (11.6-14.4) % Plt Count 260 (150-420) K/mm3 MPV 10.1 (8.7-11.0) fl Immature Gran % (Auto) 0.8 H (0.0-0.0) % Neut % (Auto) 56.5 (50.0-70.0) % Lymph % (Auto) 27.6 (18.0-42.0) % [place] % (Auto) 7.3 (2.0-11.0) % Eos % (Auto) 6.7 H (1.0-6.0) % Baso % (Auto) 1.1 H (0.0-1.0) % Lymph # (Auto) 2.52 (1.10-4.50) K/mm3 [place] # (Auto) 0.67 (0.10-0.90) K/mm3 Eos # (Auto) 0.61 H (0.02-0.50) K/mm3 Baso # (Auto) 0.10 (0.00-0.10) K/mm3 Abs Immat Gran (auto) 0.07 H (0.00-0.00) K/mm3 Absolute Neuts (auto) 5.15 (1.70-7.20) K/mm3 Absolute Nucleated RBC 0.00 (0.00-0.00) K/mm3 Nucleated RBC % 0.0 (0-0.0) % Sodium 140 (137-145) mmol/L Potassium 4.3 (3.4-5.0) mmol/L Chloride 104 (98-107) mmol/L Carbon Dioxide 26 (22-30) mmol/L Anion Gap 10 (4-12) mmol/L BUN 17 (9-20) mg/dL Creatinine 0.85 (0.7-1.3) mg/dL Estim Creat Clear Calc 89 ml/min Estimated GFR > 60 (59 - ) Glucose 145 H (65-110) mg/dL Calculated Osmolality 294 (285-295) mOsm/kg Calcium 9.3 (8.4-10.2) mg/dL Total Bilirubin 0.6 (0.2-1.3) mg/dL AST 30 (17-59) U/L ALT 40 (6-50) U/L Alkaline Phosphatase 106 (38-126) U/L Total Protein 7.7 (6.3-8.2) g/dL Albumin 4.7 (3.5-5.1) g/dL Imaging Data Radiologist's impression: ITS Impressions Ribs w/Chest X-Ray 10/12/24 08:40 IMPRESSION: 1. No rib fracture or acute cardiopulmonary disease. Abdomen/Pelvis CT 10/12/24 08:44 IMPRESSION: 1. No acute osseous abnormality or acute intra-abdominal/pelvic process. 2. Diffuse hepatic steatosis. Hand X-Ray 10/12/24 08:44 IMPRESSION: 1: NO ACUTE BONE OR JOINT ABNORMALITY IDENTIFIED. Discharge Plan Discharge Clinical Impression: Contusion of hand, left, Contusion of rib on left side, Abdominal wall strain Patient Disposition: Home Condition: Stable Instructions: Antibiotic Form, Contusion in Adults (ED) Additional Instructions: take pain medications as ordered , follow with your doctor as needed. Patient Language: German Prescriptions: New hydrocodone-acetaminophen 5-325 mg tablet 1 tablet PO Q8H PRN (Reason: pain) Qty: 14 0RF No Action diclofenac sodium 50 mg tablet,delayed release (DR/EC) 50 mg PO BID Qty: 20 0RF rosuvastatin [Crestor] 20 mg tablet 20 mg PO DAILY Qty: 90 3RF gabapentin 800 mg tablet 800 mg PO BID Qty: 60 3RF duloxetine 60 mg capsule,delayed release(DR/EC) 60 mg PO DAILY Qty: 90 2RF Follow-up/Referrals: Liu Christianson MD [Primary Care Provider, [facility]] Time of Disposition: 09:08
[2024-10-12 09:14] VITALS: BP 135/90; PULSE 85; RESP 17; TEMP 36.4; O2SAT 97
== END 2024-10-12 09:14 | disposition home or self-care (01) ==
PROVIDERS: Emergency Provider Family Medicine; PCP Family Medicine
DX: S60.222A Contusion of left hand, initial encounter (principal); S20.212A Contusion of left front wall of thorax, initial encounter; S39.011A Strain of muscle, fascia and tendon of abdomen, initial encounter; F17.210 Nicotine dependence, cigarettes, uncomplicated; W19.XXXA Unspecified fall, initial encounter
CPT/HCPCS: 36415; 71046; 71100; 73130; 74177; 80053; 85025; 99284; Q9967

== ENCOUNTER 2024-11-27 14:19 | Outpatient (CLI) | payer OTHER, SELFPAY ==
--- NOTE | 2024-11-27 14:29 | ECG_ITS ---
Test Date: 2024-11-27 14:36:23 Measurements Intervals Gerald Rate: 92 P: 58 WA: 147 QRS: 50 QRSD: 98 T: 48 QT: 339 QTc: 421 Interpretive Statements SINUS RHYTHM DELAYED PRECORDIAL R/S TRANSITION BORDERLINE ECG No previous ECG available for comparison Electronically Signed On 11-27-2024 14:44:41 CDT by Romulo Ochoa D.O.
== END 2024-11-27 14:20 | disposition home or self-care (01) ==
PROVIDERS: PCP Family Medicine; Visit Provider Anesthesiology
DX: Z01.818 Encounter for other preprocedural examination (principal); E78.5 Hyperlipidemia, unspecified; E11.9 Type 2 diabetes mellitus without complications; R94.31 Abnormal electrocardiogram [ECG] [EKG]
CPT/HCPCS: 93005

== ENCOUNTER 2024-12-03 07:18 | Day surgery (SDC) | payer OTHER, SELFPAY ==
[2024-11-24 13:36] VITALS: BMI 30.4
--- NOTE | 2024-12-03 06:39 | WPDHPUPDATE1 ---
History and Physical Update Update Date/Time: 12/03/24 06:39 Patient seen and examined in pre-operative holding area. No interval change in medical history or symptoms. Patient recalls previous discussion of benefits and alternatives to procedure. Continues to desire to proceed with right ring finger a1 soraya release. Reviewed procedure, post-op expectations and risks including but not limited to bleeding, infection, injury to tendon/nerve/vessel, decreased hand function, stiffness, RSD, no change or worsening of symptoms. I discussed the possible use of assistants and their participation in the case. Patient stated understanding and signed the consent form wishing to proceed.
--- NOTE | 2024-12-03 06:40 | P.OP_ITS ---
Procedure Note - Detailed Date of Procedure 12/03/24 Pre-op Diagnosis Right Ringer Trigger Finger Post-op Diagnosis Same Procedure Performed R RF a1 soraya release Surgeon Frank Partida MD Aircraft Structural Design Engineer Ginny ORDOÑEZ Anesthesia MAC Description of Procedure INFORMED CONSENT: The patient was seen and examined and marked in the pre-op area.? The patient signed the consent form. PROCEDURE IN DETAIL:The patient taken back to OR on the stretcher in supine position. Time out performed with anesthesia, surgeon and staff agreeing on patient's name site and surgery to be performed SCDs were placed on the lower extremities and inflated. A tourniquet was placed on {right} upper extremity and antibiotics given IV After anesthesia administered sedation I injected {3}cc 1%lido and 0.5% marcaine plain at the operative site The?{right upper extremity}?was prepped and draped in sterile fashion the??{right upper extremity} was? exsanguinated with Esmarch bandage and tourniquet inflated to 250mmHg I proceeded with making a longitudinal incision over the right ring finger A1 soraya through skin and dermis with a 15 blade scalpel. Littler scissors were used to spread down to the A1 soraya. The A1 soraya was initially incised with 15 blade scalpel. Littler scissors were used to spread above it and below it proximally and distally completing the transection entirely. Ragnell retractor was used withdrawal the FDS and FDP tendons for inspection. The tendons were free of masses and synovitis and gliding smoothly in the sheath without triggering or crepitus. I irrigated with normal saline and closed with 4-0 chromic. A dressing of xeroform, 4x4, ayaan, and zaire bandage was applied after the tourniquet was let down noting the hand was warm and well perfused. The patient was then awaken from anesthesia and transferred to the recovery room in stable condition.? Complications - none EBL- 0cc Disposition - home in stable condition Ginny Laureano PA-C was essential for positioning, retraction, closure and dressing placement. [facility] Billing Surgery - Charge Forward: Surgery Billing ([id number] for ginny)
--- OUTSIDE RECORDS SUMMARY | 2024-12-03 07:35 | XMS_ITS | Encounter Summary ---
Author Organization [facility] Address [facility] [place] [address] Care Team Providers Care Narrative Writer Name Role Phone Dannielle Suero MD Primary Care Provider [phone] Mark Campa MD Primary Care Provider [phone] Jerome Gonzalez Primary Care Provider [phone] Mark Campa MD Primary Care Provider [phone] Mark Campa MD Primary Care Provider [phone] Jonnathan Shine MD Primary Care Provider Encounter Details Date Type Department Care Team (Late st Contact Info) Description 07/26/2018 Abstract [facility] [address] [place] [address] , Generic Conversion, Social History Tobacco Use Types Packs/Day Years Used Date Smoking Tobacco: Former Alcohol Use Standard Drinks/Week Comments No 0 (1 standard drink = 0.6 oz pur e alcohol) Sex and Gender Information Value Date Recorded Sex Assigned at Male 08/10/2019 9:44 AM CDT Legal Sex Male 8:36 AM OCCUPATIONAL HEALTH SPECIALIST Gender Identity Male 08/10/2019 9:44 AM CDT Sexual Orientation Straight 03/16/2021 9: 15 AM OCCUPATIONAL HEALTH SPECIALIST documented as of this encounter Plan of [...] Rule Out 02/20/2021 02/20/2021 02/20/2021 2:32 PM OCCUPATIONAL HEALTH SPECIALIST COVID-19 Confirmed 02/20/2021 02/20/2021 12:32 AM OCCUPATIONAL HEALTH SPECIALIST documented as of this encounter Care Teams Narrative Writer Relationship Specialty Start Date End Date Dannielle Suero MD PCP - General FAMILY PRACTICE 03/02/16 07/19/19 Mark Campa MD PCP - General FAMILY PRACTICE 07/20/19 11/06/19 [place] [address] [place] [address] PCP - General PHYSICIAN NATURAL GAS TREATING UNIT OPERATOR 11/07/19 05/05/20 Mark Campa MD PCP - General FAMILY PRACTICE 05/06/20 09/06/20 Mark Campa MD PCP - General FAMILY PRACTICE 02/20/21 07/02/21 Jonnathan Shine MD [address] [place] [id number] PCP - General FAMILY PRACTICE 07/03/21 documented as of this encounter
--- OUTSIDE RECORDS SUMMARY | 2024-12-03 07:36 | XMS_ITS | Clinical Summary ---
Author Organization [facility] Address [address] [place] [address] Care Team Providers Care Recovery Agent Name Role Phone Jonnathan Shine MD [...] AM CDT Legal Sex Male 8:36 AM CUSHION INSTALLER Gender Identity Male 08/10/2019 9:44 AM CDT Sexual Orientation Straight 03/16/2021 9: 15 AM CUSHION INSTALLER Last Filed Vital Signs Vital Sign Reading Time Taken Comments Blood Pressure 140/82 03/14/2022 1:38 PM CUSHION INSTALLER Pulse 77 03/14/2022 1:38 PM CUSHION INSTALLER Temperature 36.1 C (96.9 F) 03/10/2021 4:04 PM CUSHION INSTALLER Respiratory Rate 20 03/10/2021 4:04 PM CUSHION INSTALLER Oxygen Saturation 97% 01/29/2022 3:18 PM CUSHION INSTALLER Inhaled Oxygen Concentration - - Weight 92.5 kg (204 lb) 03/14/2022 1:38 PM CUSHION INSTALLER Height 175.3 cm (5' 9) 03/14/2022 1:38 PM CUSHION INSTALLER Body Mass Index 30.13 03/14/2022 1:38 PM CUSHION INSTALLER Plan of Treatment Health Maintenance Due Date Last Done Comments Colorectal Cancer Screening Colonoscopy (10 Years) 1962 Annual Physical 1965 Hepatitis C 1980 DTaP, Tdap and Td Vaccines ( 1 - Tdap) 1981 Pneumococcal Vaccine: 50+ Ye ars (1 of 1 - PCV) 2012 Zoster Vaccines (1 of 2) 2012 COVID-19 Vaccine (1 - 2023-2 5 season) 2024 Influenza Adult (#1) 2024 RSV Immunization or 60+ Years (1 - [...] this topic Medical Devices Implanted Type Area Dietary Manager Device Identifier Shelf Expiration Date Model / Serial / Lot Plate [id number] Titanium 4 Hole Lock Low Profile Variax Bone 16x1.3mm Fibula Lateral Nonsterile - [id number] Implanted:Qty: 1 on 03/10/2021 by Abhilash Charlton MD at [facility] Plate Left: Ankle [employer] DIV [employer] ELENA [id number] / / Screw Screw Description:Right shoulder Screw Bone 3.5mm 14mm Variax Titanium T10 Full Thread Foot Ankle Self Tap Nonsterile Yellow Lock Plate System - [id number] Implanted:Qty: 1 on 03/10/2021 by Abhilash Charlton MD at [facility] Screw Left: Ankle [employer]LE[employer] [id number] / / Screw Bone 3.5mm 16mm Variax Titanium T10 Full Thread Foot Ankle Self Tap Nonsterile Yellow Lock Plate System - [id number] Implanted:Qty: 1 on 03/10/2021 by Abhilash Charlton MD at [facility] Screw Left: Ankle [employer] - DIV [employer]LE[employer] [id number] / / Screw Bone 3.5mm 20mm Titanium T10 Full Thread Self Tap Stardrive Nonsterile Yellow Variax Foot Plate System - [id number] Implanted:Qty: 1 on 03/10/2021 by Abhilash Charlton MD at [facility] Screw Left: Ankle [employer] - [employer]LE[employer] [id number] / / Screw Locking Nanci T10 3.5 X 14mm - [id number] Implanted:Qty: 1 on 03/10/2021 by Abhilash Charlton MD at [facility] Screw Left: Ankle [employer] - DIV [employer]LE[employer] [id number] / / Screw Locking Nanci T10 3.5 X 16mm - [id number] Implanted:Qty: 1 on 03/10/2021 by Abhilash Charlton MD at [facility] Screw Left: Ankle [employer] - DIV [employer] ELENA [id number] / / Screw Locking Nanci T10 3.5 X 18mm - [id number] Implanted:Qty: 1 on 03/10/2021 by Abhilash Charlton MD at [facility] Screw Left: Ankle [employer] - DIV [employer] ELENA [id number] / / Screw Locking [place] T10 3.5 X 20mm - [id number] Implanted:Qty: 1 on 03/10/2021 by Abhilash Charlton MD at [facility] Screw Left: Ankle [employer] - DIV N[employer] ELENA [id number] / / 3.5 X 16mm Locking Screw Implanted:Qty: 1 on 03/10/2021 by Abhilash Charlton MD at [facility] Left: Ankle [employer] - DIV N[employer] ELENA [id number] / / 3.5 X 12 Mm Locking Screw Implanted:Qty: 1 on 03/10/2021 by Abhilash Charlton MD at [facility] Left: Ankle [employer] - DIV [employer] ELENA [id number] / / Suture [place], Corkscrew 3.5 X 12.1 Mm Implanted:Qty: 1 on 03/10/2021 by Abhilash Charlton MD at [facility] Left: Ankle [employer] 10/18/2024 [id number] / / [id number] Explanted Type Area Dietary Manager Device Identifier Shelf Expiration Date Model / Serial / Lot 2.6 X 135mm Drill Bit Explanted:Qty: 1 on 03/10/2021 by Abhilash Charlton MD at [facility] Left: Ankle [employer] - DIV [employer] ELENA [id number] / / 2 X 135 Mm Drill Bit Explanted:Qty: 1 on 03/10/2021 by Abhilash Charlton MD at [facility] Left: Ankle [id number] / / T10 Blade Explanted:Qty: 1 on 03/10/2021 by Abhilash Charlton MD at [facility] Left: Ankle [employer] DIV [employer] ELENA [id number] / / Insurance MEDICAID Care Teams Recovery Agent Relationship Specialty Start Date End Date Jonnathan Shine MD [address] [place] [id number] PCP - General FAMILY PRACTICE 07/03/21
--- OUTSIDE RECORDS SUMMARY | 2024-12-03 07:36 | XMS_ITS | Encounter Summary ---
Author Organization [facility] Address [address] [place] [address] Care Team Providers Care Sales Representative Leather Goods Name Role Phone Dannielle Suero MD Primary Care Provider [phone] Mark Campa MD Primary Care Provider [phone] Jerome Gonzalez Primary Care Provider [phone] Mark Campa MD Primary Care Provider [phone] Mark Campa MD Primary Care Provider [phone] Jonnathan Shine MD Primary Care Provider [phone] Encounter Details Date Type Department Care Team (Late st Contact Info) Description 03/09/2016 Abstract [facility] [address] [place] [address] Mitchel Valdez MD Social History Tobacco Use Types Packs/Day Years Used Date Smoking Tobacco: Never Alcohol Use Standard Drinks/Week Comments No 0 (1 standard drink = 0.6 oz pur e alcohol) Sex and Gender Information Value Date Recorded Sex Assigned at Male 08/10/2019 9:44 AM CDT Legal Sex Male 8:36 AM DISTRIBUTION DISTRICT SUPERVISOR Gender Identity Male 08/10/2019 9:44 AM CDT Sexual Orientation Straight 03/16/2021 9: 15 AM DISTRIBUTION DISTRICT SUPERVISOR documented as of this encounter Plan [...] Rule Out 02/20/2021 02/20/2021 02/20/2021 2:32 PM DISTRIBUTION DISTRICT SUPERVISOR COVID-19 Confirmed 02/20/2021 02/20/2021 12:32 AM DISTRIBUTION DISTRICT SUPERVISOR documented as of this encounter Care Teams Sales Representative Leather Goods Relationship Specialty Start Date End Date Dannielle Suero MD PCP - General FAMILY PRACTICE 03/02/16 07/19/19 Mark Campa MD PCP - General FAMILY PRACTICE 07/20/19 11/06/19 [place] [address] [place] [address] PCP - General PHYSICIAN HELMET HAT PUNCHER 11/07/19 05/05/20 Mark Campa MD PCP - General FAMILY PRACTICE 05/06/20 09/06/20 Mark Campa MD PCP - General FAMILY PRACTICE 02/20/21 07/02/21 Jonnathan Shine MD [address] [facility] [place] [address] PCP - General FAMILY PRACTICE 07/03/21 documented as of this encounter
--- OUTSIDE RECORDS SUMMARY | 2024-12-03 07:36 | XMS_ITS | Encounter Summary ---
Author Organization [facility] Address [facility] [place] [address] Care Team Providers Care Trial Examiner Name Role Phone Jonnathan Shine MD Primary Care Provider Encounter Details Date Type Department Care Team (Late st Contact Info) Description 01/04/2022 [employer] Message Enc [facility] [address], [facility] [address] [place] [address] Abhilash Charlton MD [address] [place] [address] Visit Follow Up Social History Tobacco Use [...] AM CDT Legal Sex Male 8:36 AM NANOTECHNOLOGIST Gender Identity Male 08/10/2019 9:44 AM CDT Sexual Orientation Straight 03/16/2021 9: 15 AM NANOTECHNOLOGIST COVID-19 Exposure Response Date Recorded In the last 10 days, have yo u been in contact with someone who was confirmed or suspected to have Coronavirus/COVID-19? No / Unsure 01/04/2022 3:53 PM NANOTECHNOLOGIST documented as of this encounter Functional Status [...] on filedocumented in this encounter Care Teams Trial Examiner Relationship Specialty Start Date End Date Jonnathan Shine MD [address] [place] [address] PCP - General FAMILY PRACTICE 07/03/21 documented as of this encounter
[2024-12-03 07:48] VITALS: BP 118/86; PULSE 73; RESP 18; TEMP 36.7; O2SAT 98
[2024-12-03] MEDS: ACETAMINOPHEN 500 MG TABLET 1000 MG PO (07:54)
[2024-12-03] MEDS: LACTATED RINGERS 1,000 ML 30 ML IV CONT (07:55)
--- NOTE | 2024-12-03 08:36 | P.PNAN_ITS ---
Anes - Initial Pre Proc Eval Procedure: Operation Date: 12/03/24 09:15 Proposed Procedures p A-1 Jose Cruz Release Right Ring Finger - Frank Partida MD Date/Time: 12/03/24 08:36 Surgeon: Frank Partida MD Pre Op Diagnosis: Right Ringer Trigger Finger Patient Data Age: 64 Gender: M Height: 1.73 m Weight: 93.35 kg Last Vital Signs Temp 98.1 F 12/03/24 07:48 Pulse 73 12/03/24 07:48 Resp 18 12/03/24 07:48 BP 118/86 12/03/24 07:48 Pulse Ox 98 12/03/24 07:48 O2 Del Method Room Air 12/03/24 07:48 Allergies Allergy/AdvReac Type Severity Reaction Status Date / Time gadobenic acid (From Allergy Mild Vomiting Verified 12/03/24 07:46 Multihance) Gadolinium-Containing Allergy Mild Vomiting Verified 12/03/24 07:46 Contrast Medi Home Medications ?Medication ?Instructions ?Recorded ?Confirmed ?Type hydrocodone 5 mg-acetaminophen 325 1 tablet PO Q8H PRN pain #30 tabs 10/26/24 12/03/24 Rx mg tablet duloxetine 60 mg capsule,delayed 60 mg PO DAILY #90 ca ps 11/17/24 12/03/24 Rx release gabapentin 800 mg tablet 800 mg PO BID #60 tabs 11/1712/03/24 Rx rosuvastatin 20 mg tablet (Crestor) 20 mg PO DAILY #90 tabs 11/17/24 12/03/24 Rx semaglutide 0.25 mg or 0.5 mg (2 0.25 mg (0.368 mL) nice bcut WEEKLY 11/25/24 12/03/24 Rx mg/3 mL) subcutaneous pen injector #3 mL (Ozempic) Laboratory Tests 12/03/24 07:59 POC Capillary Glucose 106 H mg/dl (65-105) Patient hx anesthesia problems: none Family hx anesthesia problems: none Results Review: All pre-operative results and documents have been reviewed as part of the pre- operative evaluation. [facility] Past Medical History Medical History (Updated 10/26/24 @ 11:38 by MAGEN Morales) Elevated hemoglobin A1c Elevated fasting glucose Screen for colon cancer Chest pain Pain in right hand Trigger finger of right hand Elevated cholesterol Fracture dislocation of right ankle Surgical History Surgical History History of repair of right rotator cuff Family History Family History Father Diabetes mellitus Mother Diabetes mellitus Social History Social History Smoking packs per day: 1 Smoking cigarettes per day: 20.0 Years smoked: 15 Smoking pack-years: 15.00 Smoking status: Never smoker Tobacco type: cigarettes Second hand tobacco smoke exposure: Yes Smoking end date: 02/18/90 Alcohol intake: current Drinks per week: 12 Alcohol use details: BEER Substance use: never Substance use type: does not use Do You Feel Safe in your Home?: Yes Lack of Transportation: No Lack of Food: Never True Current Housing: I Have Housing Concerned About Future Housing: No Difficulty Paying Gas/Electric Bills: No Difficulty Paying for Meds: No Currently Unemployed: YES Education: Trade/Vocational Certificate Difficulty w/ Childcare or Family Care: No Living arrangements: with family Additional living arrangements comments: with sp Occupation/Education: occupation Gender identity (if verbalized by the patient): Male Sexual Orientation (if Verbalized by the Patient): Straight or Heterosexual Spiritual care concerns: Yes Agree to blood products: Yes Anes - Eval Final PreProcedure Day of Procedure 12/03/24 08:36 Heart: regular rate and rhythm Lungs: clear to auscultation Airway: Mallampati scale class II Neurological: alert and oriented Last oral intake: >/= 8 hours ASA classification: II Anesthetic plan: proceed Anesthesia type and monitoring: monitored anesthesia care Results Review: All pre-operative results and documents have been reviewed as part of the pre- operative evaluation. Informed Consent: The patient's anesthetic plan and its attendant risks and benefits were discussed with the patient/family/POA. Questions were solicited and answers provided to the satisfaction of the patient/family/POA.
[2024-12-03] MEDS: ceFAZolin SODIUM 2 GM/20 ML SW SYRINGE IV PUSH (09:08)
[2024-12-03] MEDS: BUPivacaine HCL 0.5% 10 ML AMP (09:15)
[2024-12-03] MEDS: LIDOCAINE 1% LOCAL INJ 20 ML VIAL (09:16)
--- NOTE | 2024-12-03 09:21 | WPDANESPN ---
Anes - Prog Note Post-Op Date/Time: 12/03/24 09:21 Vital Signs: Last Vital Signs Temp 98.1 F 12/03/24 07:48 Pulse 73 12/03/24 07:48 Resp 18 12/03/24 07:48 BP 118/86 12/03/24 07:48 Pulse Ox 98 12/03/24 07:48 O2 Del Method Room Air 12/03/24 07:48 Pain Score (VAS): no 12/03/24 07:59 POC Capillary Glucose 106 H Patient Feedback: Patient satisfied with anesthetic care.
[2024-12-03 09:24] VITALS: BP 105/76; PULSE 82; RESP 15; O2SAT 94
[2024-12-03 09:50] VITALS: BP 110/84; PULSE 74; RESP 16; O2SAT 97
== END 2024-12-03 09:57 | disposition home or self-care (01) ==
PROVIDERS: PCP Family Medicine; Visit Provider Plastic Surgery
PROC: (CPT 26055; principal; 2024-12-03 09:15)
DX: M65.341 Trigger finger, right ring finger (principal)
CPT/HCPCS: 26055

== ENCOUNTER 2025-02-08 10:42 | Outpatient (CLI) | payer OTHER, MEDICAID, SELFPAY ==
[2025-02-08 11:14] LABS: MALB Creatinine Ratio 5.7 mg/g (0-30)
[2025-02-08 11:24] LABS: Cholesterol 159 mg/dL (0-200); Creatine Kinase 85 U/L (55-170); HDL Direct 70 mg/dL; Triglycerides 115 mg/dL (<150)
--- OUTSIDE RECORDS SUMMARY | 2025-02-08 12:29 | XMS_ITS | Encounter Summary ---
Author Organization [facility] Address [address] [place] [address] Care Team Providers Care Fishing Lure Assembler Name Role Phone Dannielle Suero MD Primary Care Provider [phone] Mark Campa MD Primary Care Provider [phone] Jerome Gonzalez Primary Care Provider [phone] Mark Campa MD Primary Care Provider [phone] Mark Campa MD Primary Care Provider [phone] Jonnathan Shine MD Primary Care Provider [phone] Encounter Details Date Type Department Care Team (Late st Contact Info) Description 03/09/2016 Abstract [facility] [address] [place] [address] Mitchel Valdez MD Social History Tobacco Use Types Packs/Day Years Used Date Smoking Tobacco: Never Alcohol Use Standard Drinks/Week Comments No 0 (1 standard drink = 0.6 oz pur e alcohol) Sex and Gender Information Value Date Recorded Sex Assigned at Male 08/10/2019 9:44 AM CDT Legal Sex Male 8:36 AM DIVISION ENGINEER Gender Identity Male 08/10/2019 9:44 AM CDT Sexual Orientation Straight 03/16/2021 9: 15 AM DIVISION ENGINEER documented as of this encounter Plan of [...] Rule Out 02/20/2021 02/20/2021 02/20/2021 2:32 PM DIVISION ENGINEER COVID-19 Confirmed 02/20/2021 02/20/2021 12:32 AM DIVISION ENGINEER documented as of this encounter Care Teams Fishing Lure Assembler Relationship Specialty Start Date End Date Dannielle Suero MD PCP - General FAMILY PRACTICE 03/02/16 07/19/19 Mark Campa MD PCP - General FAMILY PRACTICE 07/20/19 11/06/19 [place] [address] [address] [place], [place] [address] PCP - General PHYSICIAN GEOSPATIAL INTELLIGENCE ANALYST 11/07/19 05/05/20 Mark Campa MD PCP - General FAMILY PRACTICE 05/06/20 09/06/20 Mark Campa MD PCP - General FAMILY PRACTICE 02/20/21 07/02/21 [place] [address] [place] [address] PCP - General FAMILY PRACTICE 07/03/21 documented as of this encounter
--- OUTSIDE RECORDS SUMMARY | 2025-02-08 12:29 | XMS_ITS | Encounter Summary ---
Author Organization [facility] Address [facility] [place] [address] Care Team Providers Care Brick Tender Name Role Phone Dannielle Suero MD Primary Care Provider [phone] Mark Campa MD Primary Care Provider [phone] Jerome Gonzalez Primary Care Provider [phone] Mark Campa MD Primary Care Provider [phone] Mark Campa MD Primary Care Provider [phone] Jonnathan Shine MD Primary Care Provider [phone] Encounter Details Date Type Department Care Team (Late st Contact Info) Description 07/26/2018 Abstract [facility] [address] [place] [address] , Generic Conversion, Social History Tobacco Use Types Packs/Day Years Used Date Smoking Tobacco: Former Alcohol Use Standard Drinks/Week Comments No 0 (1 standard drink = 0.6 oz pur e alcohol) Sex and Gender Information Value Date Recorded Sex Assigned at Male 08/10/2019 9:44 AM CDT Legal Sex Male 8:36 AM OUTBOARD MOTOR TESTER Gender Identity Male 08/10/2019 9:44 AM CDT Sexual Orientation Straight 03/16/2021 9: 15 AM OUTBOARD MOTOR TESTER documented as of this encounter Plan of [...] Rule Out 02/20/2021 02/20/2021 02/20/2021 2:32 PM OUTBOARD MOTOR TESTER COVID-19 Confirmed 02/20/2021 02/20/2021 12:32 AM OUTBOARD MOTOR TESTER documented as of this encounter Care Teams Brick Tender Relationship Specialty Start Date End Date Dannielle Suero MD PCP - General FAMILY PRACTICE 03/02/16 07/19/19 Mark Campa MD PCP - General FAMILY PRACTICE 07/20/19 11/06/19 [place] [address] [address] [place], [place] [address] PCP - General PHYSICIAN POLICE COMMANDING OFFICER 11/07/19 05/05/20 Mark Campa MD PCP - General FAMILY PRACTICE 05/06/20 09/06/20 Mark Campa MD PCP - General FAMILY PRACTICE 02/20/21 07/02/21 [place] [address] [place], [place] [address] PCP - General FAMILY PRACTICE 07/03/21 documented as of this encounter
--- OUTSIDE RECORDS SUMMARY | 2025-02-08 12:30 | XMS_ITS | Clinical Summary ---
Author Organization [facility] Address [address] [place] [address] Care Team Providers Care Pulmonary Disease Specialist Name Role Phone Jonnathan Shine MD Primary [...] AM CDT Legal Sex Male 8:36 AM STEAMBOAT PILOT Gender Identity Male 08/10/2019 9:44 AM CDT Sexual Orientation Straight 03/16/2021 9: 15 AM STEAMBOAT PILOT Last Filed Vital Signs Vital Sign Reading Time Taken Comments Blood Pressure 140/82 03/14/2022 1:38 PM STEAMBOAT PILOT Pulse 77 03/14/2022 1:38 PM STEAMBOAT PILOT Temperature 36.1 C (96.9 F) 03/10/2021 4:04 PM STEAMBOAT PILOT Respiratory Rate 20 03/10/2021 4:04 PM STEAMBOAT PILOT Oxygen Saturation 97% 01/29/2022 3:18 PM STEAMBOAT PILOT Inhaled Oxygen Concentration - - Weight 92.5 kg (204 lb) 03/14/2022 1:38 PM STEAMBOAT PILOT Height 175.3 cm (5' 9) 03/14/2022 1:38 PM STEAMBOAT PILOT Body Mass Index 30.13 03/14/2022 1:38 PM STEAMBOAT PILOT Plan of Treatment Health Maintenance Due Date Last Done Comments Colorectal Cancer Screening Colonoscopy (10 Years) 1962 Annual Physical 1965 Hepatitis C 1980 DTaP, Tdap and Td Vaccines ( 1 - Tdap) 1981 Pneumococcal Vaccine: 50+ Ye ars (1 of 1 - PCV) 2012 Zoster Vaccines (1 of 2) 2012 COVID-19 Vaccine (1 - 2024-2 6 season) 2024 Influenza Adult (#1) 2024 RSV Immunization or 60+ Years (1 - 1-dose 75+ series) 2037 Hepatitis A Vaccines Aged Out No long er eligible based on patient's age to complete this topic Meningococcal B Vaccine Aged Out No l onger eligible based on patient's age to complete this topic Meningococcal Vaccine Aged Out No mauri tasha eligible based on patient's age to complete this topic RSV Immunizations Under 20 Months Aged Out No longer eligible based on patient's age to complete this topic Medical Devices Implanted Type Area Gage Designer Device Identifier Shelf Expiration Date Model / Serial / Lot Plate [id number] Titanium 4 Hole Lock Low Profile Variax Bone 16x1.3mm Fibula Lateral Nonsterile - [id number] Implanted:Qty: 1 on 03/10/2021 by Abhilash Charlton MD at [facility] Plate Left: Ankle [employer] DIV [employer] ELENA [id number] / / Screw Screw Description:Right shoulder Screw Bone 3.5mm 14mm Variax Titanium T10 Full Thread Foot Ankle Self Tap Nonsterile Yellow Lock Plate System - [id number] Implanted:Qty: 1 on 03/10/2021 by Abhilash Charlton MD at [facility] Screw Left: Ankle [employer] - DIV [employer]LE[employer] [id number] / / Screw Bone 3.5mm 16mm Variax Titanium T10 Full Thread Foot Ankle Self Tap Nonsterile Yellow Lock Plate System - [id number] Implanted:Qty: 1 on 03/10/2021 by Abhilash Charlton MD at [facility] Screw Left: Ankle [employer] - DIV [employer]LENA [id number] / / Screw Bone 3.5mm 20mm Titanium T10 Full Thread Self Tap Stardrive Nonsterile Yellow Variax Foot Plate System - [id number] Implanted:Qty: 1 on 03/10/2021 by Abhilash Charlton MD at [facility] Screw Left: Ankle [employer] - DIV [employer] ELENA [id number] / / Screw Locking Nanci T10 3.5 X 14mm - [id number] Implanted:Qty: 1 on 03/10/2021 by Abhilash Charlton MD at [facility] Screw Left: Ankle [employer] - DIV [employer] ELENA [id number] / / Screw Locking Jakin T10 3.5 X 16mm - [id number] Implanted:Qty: 1 on 03/10/2021 by Abhilash Charlton MD at [facility] Screw Left: Ankle [employer] - DIV [employer] ELENA [id number] / / Screw Locking Nanci T10 3.5 X 18mm - [id number] Implanted:Qty: 1 on 03/10/2021 by Abhilash Charlton MD at [facility] Screw Left: Ankle [employer] - DIV [employer] ELENA [id number] / / Screw Locking Jakin T10 3.5 X 20mm - [id number] Implanted:Qty: 1 on 03/10/2021 by Abhilash Charlton MD at [facility] Screw Left: Ankle [employer] - DIV [employer] ELENA [id number] / / 3.5 X 16mm Locking Screw Implanted:Qty: 1 on 03/10/2021 by Abhilash Charlton MD at [facility] Left: Ankle [employer] - DIV [employer] ELENA [id number] / / 3.5 X 12 Mm Locking Screw Implanted:Qty: 1 on 03/10/2021 by Abhilash Charlton MD at [facility] Left: Ankle [employer] - DIV [employer] ELENA [id number] / / Suture Harviell, Corkscrew 3.5 X 12.1 Mm Implanted:Qty: 1 on 03/10/2021 by Abhilash Charlton MD at [facility] Left: Ankle [employer] 10/18/2024 [id number] / / [id number] Explanted Type Area Gage Designer Device Identifier Shelf Expiration Date Model / Serial / Lot 2.6 X 135mm Drill Bit Explanted:Qty: 1 on 03/10/2021 by Abhilash Charlton MD at [facility] Left: Ankle [employer] - DIV [employer]LE[employer] [id number] / / 2 X 135 Mm Drill Bit Explanted:Qty: 1 on 03/10/2021 by Abhilash Charlton MD at [facility] Left: Ankle [id number] / / T10 Blade Explanted:Qty: 1 on 03/10/2021 by Abhilash Charlton MD at [facility] Left: Ankle [employer] - DIV [employer]LENA [id number] / / Insurance MEDICAID Care Teams Pulmonary Disease Specialist Relationship Specialty Start Date End Date Jonnathan Shine MD PCP - General FAMILY PRACTICE 07/03/21
--- OUTSIDE RECORDS SUMMARY | 2025-02-08 12:30 | XMS_ITS | Encounter Summary ---
Author Organization [facility] System Address [facility] [place] [address] Care Team Providers Care Supply Chain Logistics Manager Name Role Phone Jonnathan Shine MD Primary Care Provider [phone] Encounter Details Date Type Department Care Team (Late st Contact Info) Description 01/04/2022 BIG Launcher Message Enc [facility] [address], [facility] [address] [place] [phone] Abhilash Charlton MD [address] [place] [address] Visit Follow Up Social History Tobacco Use [...] AM CDT Legal Sex Male 8:36 AM SENIOR PROJECT COORDINATOR Gender Identity Male 08/10/2019 9:44 AM CDT Sexual Orientation Straight 03/16/2021 9: 15 AM SENIOR PROJECT COORDINATOR COVID-19 Exposure Response Date Recorded In the last 10 days, have yo u been in contact with someone who was confirmed or suspected to have Coronavirus/COVID-19? No / Unsure 01/04/2022 3:53 PM SENIOR PROJECT COORDINATOR documented as of this encounter Functional Status [...] on filedocumented in this encounter Care Teams Supply Chain Logistics Manager Relationship Specialty Start Date End Date Jonnathan Shine MD PCP - General FAMILY PRACTICE 07/03/21 documented as of this encounter
== END 2025-02-08 10:43 | disposition home or self-care (01) ==
PROVIDERS: PCP Family Medicine; Visit Provider Nurse Practitioner Family
DX: E11.69 Type 2 diabetes mellitus with other specified complication (principal); E78.5 Hyperlipidemia, unspecified
CPT/HCPCS: 36415; 80061; 82043; 82550